=== PATIENT | female | born 1990 | race Caucasian/White ===

== ENCOUNTER 2017-11-02 13:32 | Emergency (ER) | payer BC ==
[2017-11-02] MEDS ORDERED: Ketorolac 30 MG/ML SDV IVPUSH ONE (14:05)
[2017-11-02] MEDS ORDERED: Ondansetron 4 MG/2 ML SDV IVPUSH ONE (14:05)
[2017-11-02] MEDS ORDERED: Sodium Chloride 0.9% 1,000 ML IV ONE (14:05)
--- NOTE | 2017-11-02 14:16 | EDM.PDOC ---
ED HPI GENERAL MEDICAL PROBLEM - General Chief Complaint: Abdominal Pain Stated Complaint: ABDOMINAL PAIN Time Seen by Provider: 11/02/17 13:52 Source of Information: Reports: Patient History Limitations: Reports: No Limitations - History of Present Illness INITIAL COMMENTS - FREE TEXT/NARRATIVE: HISTORY AND PHYSICAL: History of present illness: Patient is a 27-year-old female who presents to the emergency room with abdominal pain 2 weeks. She states when the pain started initially, it was located in her epigastrium. She was seen at the walk-in clinic and [place], which she was diagnosed with a stomach ulcer and started on antacids. At that time a H. pylori test was done, which she reports was negative. Since that time her pain has progressively moved to her low abdomen, which she describes as a "pressure". The pain is worse when she is sitting on the toilet, states "it feels like she needed to have a bowel movement". She did have a bowel movement yesterday which she describes as normal. States the pain is so bad that she is nauseated. Was recently placed on Tamiflu (prophylactic) due to her significant other having influenza. Patient has a history of endometriosis. Currently has the Mirena IUD, last having a Depo-Provera shot in February. She denies any vaginal bleeding or discharge. Unsure of last menstrual period as they have been irregular. Denies any fever, chills, shortness of breath, chest pain. Review of systems: As per history of present illness and below otherwise all systems reviewed and negative. Past medical history: As per history of present illness and as reviewed below otherwise noncontributory. Surgical history: As per history of present illness and as reviewed below otherwise noncontributory. Social history: No reported history of drug or alcohol abuse. Family history: As per history of present illness and as reviewed below otherwise noncontributory. Physical exam: General: Well-developed and well-nourished 27-year-old female. Alert and oriented. Nontoxic appearing and in no acute distress. HEENT: Atraumatic, normocephalic, pupils reactive, negative for conjunctival pallor or scleral icterus, mucous membranes moist, throat clear, neck supple, nontender, trachea midline. Lungs: Clear to auscultation, breath sounds equal bilaterally, chest nontender. Heart: S1S2, regular rate and rhythm Abdomen: Soft, nondistended, right lower quadrant and left lower quadrant tenderness with palpation. Negative for masses or hepatosplenomegaly. Negative for costovertebral tenderness. Pelvis: Stable nontender. Genitourinary: Deferred. Rectal: Deferred. Extremities: Atraumatic, moves all extremities per self without difficulty or deficits. She is negative for cords or calf pain. Neurovascular unremarkable. Neuro: Awake, alert, oriented. Cranial nerves II through XII unremarkable. Cerebellum unremarkable. Motor and sensory unremarkable throughout. Exam nonfocal. CT shows a small amount of free fluid in the pelvis which likely represent a ruptured ovarian cyst. Otherwise is benign. She does have a slightly elevated white count which I feel is reactive due to her pain. She does have a history of endometriosis, which could contribute to her low pelvic pain. Discussed the results with the patient. We'll give her some tramadol for pain management, as she is unable to take ibuprofen as due to her new diagnosis of stomach ulcers. She will follow-up with her RX SPECIALIST or primary care provider next week if she continues to have pain. She denies any questions at this time. Diagnostics: CBC, CMP, UA, urine , CT abdomen and pelvis Therapeutics: IV fluid, Zofran, Toradol Impression: #1 Pelvic Pain #2 History of endometriosis Plan: 1. Please continue to take your prescribed medications. 2. May take Tylenol for pain management. Tramadol has been prescribed for pain as well. This medication may cause drowsiness and do not take it while driving or needing to be functioning outside of the house. Zofran as needed for nausea. Apply Gentle heat to the low abdomen may be beneficial. 3. If you continued to have pain please follow-up with her RX SPECIALIST or primary care provider. Return to the ED as needed and as discussed. Definitive disposition and diagnosis as appropriate pending reevaluation and review of above. Duration: Week(s): Location: Reports: Abdomen lower abdominal pain Pain Score (Numeric/FACES): 3 - Related Data Allergies Allergy/AdvReac Type Severity Reaction Status Date / Time No Known Allergies Allergy Verified 04/01/16 15:29 Home Meds: Home Meds medroxyPROGESTERone Acetate [Depo-Provera] 1 dose INJECT ASDIRECTED 04/01/16 [ History] Levonorgestrel [Mirena] 1 each IY ASDIRECTED 11/02/17 [History] Oseltamivir Phosphate [Tamiflu] 45 mg PO DAILY 11/02/17 [History] Ranitidine HCl [Acid Control] 150 mg PO DAILY 11/02/17 [History] Sucralfate 1 gm PO QID 11/02/17 [History] Past Medical History Respiratory History: Reports: Asthma Gastrointestinal History: Reports: None RX SPECIALIST History: Reports: Endometrial Ablation, Endometriosis - Past Surgical History HEENT Surgical History: Reports: Tonsillectomy GI Surgical History: Reports: Cholecystectomy Musculoskeletal Surgical History: Reports: Other (See Below) Social & Family History - Family History Family Medical History: Noncontributory - Tobacco Use Smoking Status *Q: Never Smoker Second Hand Smoke Exposure: No - Alcohol Use Days Per Week of Alcohol Use: 3 Number of Drinks Per Day: 2 Total Drinks Per Week: 6 - Recreational Drug Use Recreational Drug Use: No ED ROS GENERAL - Review of Systems Review Of Systems: ROS reveals no pertinent complaints other than HPI. ED EXAM, GI/ABD - Physical Exam Exam: See Below (See dictation) Course - Vital Signs Last Recorded V/S: Last Vital Signs Temp 98.7 F 11/02/17 13:47 Pulse 105 H 11/02/17 13:47 Resp 16 11/02/17 13:47 BP 148/95 H 11/02/17 13:47 Pulse Ox 98 11/02/17 13:47 - Orders/Labs/Meds Orders: Active Orders 24 hr Category Date Time Status Abdomen Pelvis w Cont [CT] Stat Exams 11/02/17 14:05 Taken Labs: Laboratory Tests 11/02/17 11/02/17 11/02/17 Range/Units 14:00 14:00 14:31 WBC 13.13 H (4.0-11.0) K/uL RBC 5.02 (4.30-5.90) M/uL Hgb 15.4 (12.0-16.0) g/dL Hct 45.7 (36.0-46.0) % MCV 91.0 (80.0-98.0) fL MCH 30.7 (27.0-32.0) pg MCHC 33.7 (31.0-37.0) g/dL RDW Std Deviation 43.9 (28.0-62.0) fl RDW Coeff of Dane 13 (11.0-15.0) % Plt Count 415 H (150-400) K/uL MPV 9.90 (7.40-12.00) fL Neut % (Auto) 65.6 (48.0-80.0) % Lymph % (Auto) 21.2 (16.0-40.0) % Weber % (Auto) 5.0 (0.0-15.0) % Eos % (Auto) 7.5 H (0.0-7.0) % Baso % (Auto) 0.7 (0.0-1.5) % Neut # (Auto) 8.6 H (1.4-5.7) K/uL Lymph # (Auto) 2.8 H (0.6-2.4) K/uL Weber # (Auto) 0.7 (0.0-0.8) K/uL Eos # (Auto) 1.0 H (0.0-0.7) K/uL Baso # (Auto) 0.1 (0.0-0.1) K/uL Nucleated RBC % 0.0 /100WBC Nucleated RBCs # 0 K/uL Sodium (136-146) mmol/L Potassium (3.5-5.1) mmol/L Chloride (98-110) mmol/L Carbon Dioxide (21-31) mmol/L BUN (6.0-23.0) mg/dL Creatinine (0.6-1.5) mg/dL Est Cr Clr Drug Dosing mL/min Estimated GFR (MDRD) ml/min Glucose (60-110) mg/dL Calcium (8.8-10.8) mg/dL Total Bilirubin (0.1-1.5) mg/dL AST (5-40) IU/L ALT (8-54) IU/L Alkaline Phosphatase (40-150) Total Protein (6.0-8.0) g/dL Albumin (3.5-5.0) g/dL Globulin (2.0-3.5) g/dL Albumin/Globulin Ratio (1.3-2.8) Urine Color YELLOW Urine Appearance CLEAR Urine pH 6.0 (5.0-8.0) Ur Specific [place] 1.025 (1.001-1.035) Urine Protein NEGATIVE (NEGATIVE) mg/dL Urine Glucose (UA) NEGATIVE (NEGATIVE) mg/dL Urine Ketones NEGATIVE (NEGATIVE) mg/dL Urine Occult Blood SMALL H (NEGATIVE) Urine Nitrite NEGATIVE (NEGATIVE) Urine Bilirubin NEGATIVE (NEGATIVE) Urine Urobilinogen 0.2 (<2.0) EU/dL Ur Leukocyte Esterase NEGATIVE (NEGATIVE) Urine RBC 1-2 (0-2/HPF) Urine WBC 0-1 (0-5/HPF) Ur Epithelial Cells FEW (NONE-FEW) Urine Bacteria FEW (NEGATIVE) Urine HCG, Qual NEGATIVE (NEGATIVE) H. pylori IgG Antibody (NEG) 11/02/17 11/02/17 Range/Units 14:31 14:31 WBC (4.0-11.0) K/uL RBC (4.30-5.90) M/uL Hgb (12.0-16.0) g/dL Hct (36.0-46.0) % MCV (80.0-98.0) fL MCH (27.0-32.0) pg MCHC (31.0-37.0) g/dL RDW Std Deviation (28.0-62.0) fl RDW Coeff of Dane (11.0-15.0) % Plt Count (150-400) K/uL MPV (7.40-12.00) fL Neut % (Auto) (48.0-80.0) % Lymph % (Auto) (16.0-40.0) % Weber % (Auto) (0.0-15.0) % Eos % (Auto) (0.0-7.0) % Baso % (Auto) (0.0-1.5) % Neut # (Auto) (1.4-5.7) K/uL Lymph # (Auto) (0.6-2.4) K/uL Weber # (Auto) (0.0-0.8) K/uL Eos # (Auto) (0.0-0.7) K/uL Baso # (Auto) (0.0-0.1) K/uL Nucleated RBC % /100WBC Nucleated RBCs # K/uL Sodium 140 (136-146) mmol/L Potassium 3.8 (3.5-5.1) mmol/L Chloride 108 (98-110) mmol/L Carbon Dioxide 23 (21-31) mmol/L BUN 9 (6.0-23.0) mg/dL Creatinine 0.7 (0.6-1.5) mg/dL Est Cr Clr Drug Dosing 86.71 mL/min Estimated GFR (MDRD) > 60.0 ml/min Glucose 85 (60-110) mg/dL Calcium 9.8 (8.8-10.8) mg/dL Total Bilirubin 1.7 H (0.1-1.5) mg/dL AST 24 (5-40) IU/L ALT 39 (8-54) IU/L Alkaline Phosphatase 71 (40-150) Total Protein 7.5 (6.0-8.0) g/dL Albumin 4.4 (3.5-5.0) g/dL Globulin 3.1 (2.0-3.5) g/dL Albumin/Globulin Ratio 1.4 (1.3-2.8) Urine Color Urine Appearance Urine pH (5.0-8.0) Ur Specific [place] (1.001-1.035) Urine Protein (NEGATIVE) mg/dL Urine Glucose (UA) (NEGATIVE) mg/dL Urine Ketones (NEGATIVE) mg/dL Urine Occult Blood (NEGATIVE) Urine Nitrite (NEGATIVE) Urine Bilirubin (NEGATIVE) Urine Urobilinogen (<2.0) EU/dL Ur Leukocyte Esterase (NEGATIVE) Urine RBC (0-2/HPF) Urine WBC (0-5/HPF) Ur Epithelial Cells (NONE-FEW) Urine Bacteria (NEGATIVE) Urine HCG, Qual (NEGATIVE) H. pylori IgG Antibody NEGATIVE (NEG) Meds: Medications Discontinued Medications Generic Name Dose Route Start Last Admin Trade Name Freq PRN Reason Stop Dose Admin Sodium Chloride 1,000 mls @ 999 mls/hr 11/02/17 14:05 11/02/17 14:41 Normal Saline IV 11/02/17 15:05 999 mls/hr STAT ONE Administration Iopamidol 100 ml 11/02/17 15:38 11/02/17 15:39 Isovue-370 (76%) IVPUSH 11/02/17 15:39 100 ml ONETIME STA Administration Ketorolac Tromethamine 30 mg 11/02/17 14:05 11/02/17 14:46 Toradol IVPUSH 11/02/17 14:06 30 mg ONETIME ONE Administration Morphine Sulfate 2 mg 11/02/17 15:31 Morphine IVPUSH 11/02/17 15:32 ONETIME ONE Ondansetron HCl 4 mg 11/02/17 14:05 11/02/17 14:45 Zofran IVPUSH 11/02/17 14:06 4 mg ONETIME ONE Administration Departure - Departure Time of Disposition: 16:07 Disposition: Home, Self-Care 01 Clinical Impression: Pelvic pain, History of endometriosis - Discharge Information Referrals: PCP,None [Primary Care Provider] - Forms: ED Department Discharge Additional Instructions: My general discharge The following information is given to patients seen in the emergency department who are being discharged to home. This information is to outline your options for follow-up care. We provide all patients seen in our emergency department with a follow-up referral. The need for follow-up, as well as the timing and circumstances, are variable depending upon the specifics of your emergency department visit. If you don't have a primary care physician on staff, we will provide you with a referral. We always advise you to contact your personal physician following an emergency department visit to inform them of the circumstance of the visit and for follow-up with them and/or the need for any referrals to a consulting specialist. The emergency department will also refer you to a specialist when appropriate. This referral assures that you have the opportunity for follow-up care with a specialist. All of these measure are taken in an effort to provide you with optimal care, which includes your follow-up. Under all circumstances we always encourage you to contact your private physician who remains a resource for coordinating your care. When calling for follow-up care, please make the office aware that this follow-up is from your recent emergency room visit. If for any reason you are refused follow-up, please contact the [facility] Emergency Department at and asked to speak to the emergency department charge nurse. [facility] [address] [place] [id number] 1. Please continue to take your prescribed home medications. 2. May take Tylenol for pain management. Tramadol has been prescribed for pain as well. This medication may cause drowsiness and do not take it while driving or needing to be functioning outside of the house. Zofran as needed for nausea. Apply Gentle heat to the low abdomen may be beneficial. 3. If you continued to have pain please follow-up with her RX SPECIALIST or primary care provider. Return to the ED as needed and as discussed. - My Orders Last 24 Hours: My Active Orders 11/02/17 14:05 Abdomen Pelvis w Cont [CT] Stat - Assessment/Plan Last 24 Hours: My Active Orders 11/02/17 14:05 Abdomen Pelvis w Cont [CT] Stat
[2017-11-02 15:10] LABS: CHLORIDE,CL 108 mmol/L (98-110); SODIUM,NA 140 mmol/L (136-146)
[2017-11-02] MEDS ORDERED: Morphine 2 MG/ML Syringe IVPUSH ONE (15:31)
[2017-11-02] MEDS ORDERED: Iopamidol 755 Mg/ML 100 ML Bottle IVPUSH STA (15:38)
[2017-11-02] MEDS ORDERED: Morphine 2 MG/ML Syringe IM ONE (16:37)
[2017-11-02 16:52] VITALS: BP 146/98
--- NOTE | 2017-11-04 14:25 | CT ---
EXAM DATE: 11/02/17 PATIENT'S AGE: 27 Patient: DEE DEE FARNSWORTH Facility: [place], [place] Site . Site : 1990 Study: CT Abdomen/Pelvis [id number] 3:28:13 PM Ordering Physician: Doctor Gonzalez Final Report: INDICATION: LOWER ABD PAIN HISTORY: Lower abdominal pain. COMPARISON: None. TECHNIQUE: CT of the abdomen and pelvis. 100 cc of Isovue-370 IV. Coronal/sagittal reconstruction images. FINDINGS: Lung bases: There is no pleural or pericardial effusion. The heart size is normal. There is dependent atelectasis. There is no acute airspace disease. There is no basilar pneumothorax. Abdomen/pelvis: There is no solid hepatic mass. There is no dilation of intrahepatic biliary radicals. There is no perihepatic ascites. There is no adrenal mass. There is no hydronephrosis. There is no perinephric fluid collection. Cholecystectomy. The nephrograms are symmetric. The spleen size is normal. There is no pancreatic mass or pancreatic duct dilation. No glandular atrophy. IUD in place. Small amount of free fluid in the pelvis. No adnexal mass. No drainable fluid collection. There is no evidence for a small bowel or colonic obstruction. There is no mucosal hyper enhancement. There is no perienteric edema. The terminal ileum is normal. The appendix is normal in caliber. It is seen best on series 203, image 47, and on series 201, image 88. No abdominal aortic aneurysm. The celiac axis, SMA, and NGA are patent. There is no adenopathy by size criteria in the pelvis, retroperitoneum, gastrohepatic ligament, small bowel mesentery. The bone windows demonstrate no lytic or blastic bone lesions. The alignment is preserved. On sagittal reconstruction images, vertebral body heights are maintained. IMPRESSION: 1. Small amount of free fluid in the pelvis. This may represent a recently ruptured ovarian cyst. 2. No loculated fluid collection to indicate an abscess. No adnexal mass. 3. The appendix is normal in caliber. There are no adjacent inflammatory changes. 4. Gallbladder appears surgically absent. Normal caliber biliary tree. Dictated by Ramin Loomis MD @ 11/02/2017 3:47:50 PM Dictated by: Ramin Loomis MD @ 11/02/2017 15:48:23 (Electronic Signature) Report Signed by Proxy. [facility]
== END 2017-11-02 16:51 | disposition home or self-care (01) ==
LOC: MW.ED 13:32
DX: R10.2 Pelvic and perineal pain (principal); R10.31 Right lower quadrant pain; R10.32 Left lower quadrant pain; Z87.42 Personal history of other diseases of the female genital tract; Z79.899 Other long term (current) drug therapy
CPT/HCPCS: 36415; 74177; 80053; 81001; 81025; 85025; 86677; 96361; 96372; 96374; 96375; 99284; J1885; J2270; J2405; J7040; Q9967

== ENCOUNTER 2019-09-26 18:35 | Emergency (ER) | payer BC ==
--- NOTE | 2019-09-26 19:35 | EDM.PDOC ---
ED HPI GENERAL MEDICAL PROBLEM - General Chief Complaint: ENT Problem Stated Complaint: FLU SYMPTOMS Time Seen by Provider: 09/26/19 19:16 Source of Information: Reports: Patient History Limitations: Reports: No Limitations - History of Present Illness INITIAL COMMENTS - FREE TEXT/NARRATIVE: Presents reporting a 24-hour history of ear fullness and pain particularly on the right, feeling rundown. Denies shortness of breath, chest pain, cough, sore throat. She does not smoke. Did not have a flu shot. Otherwise healthy except for hypertension. She states she has not taken her blood pressure medication for today yet. Bilateral Ear Pain Score (Numeric/FACES): 4 - Related Data Allergies Allergy/AdvReac Type Severity Reaction Status Date / Time No Known Allergies Allergy Verified 09/26/19 19:15 Home Meds: Home Meds medroxyPROGESTERone Acetate [Depo-Provera] 1 dose INJECT ASDIRECTED 04/01/16 [ History] Sucralfate 1 gm PO QID 11/02/17 [History] levonorgestreL [Mirena] 1 each IY ASDIRECTED 11/02/17 [History] raNITIdine HCl [Acid Control] 150 mg PO DAILY 11/02/17 [History] Diclofenac Sodium [Voltaren] 75 mg PO BIDMEALS #20 tab.ec 09/26/19 [Rx] Metoprolol Succinate [Toprol XL] 25 mg PO DAILY 09/26/19 [History] Montelukast [Singulair] 10 mg PO DAILY 09/26/19 [History] amLODIPine [Norvasc] 2.5 mg PO DAILY 09/26/19 [History] Past Medical History Cardiovascular History: Reports: Hypertension Respiratory History: Reports: Asthma Gastrointestinal History: Reports: None RAYON WINDER History: Reports: Endometrial Ablation, Endometriosis - Infectious Disease History Infectious Disease History: Reports: Chicken Pox - Past Surgical History HEENT Surgical History: Reports: Tonsillectomy GI Surgical History: Reports: Cholecystectomy Musculoskeletal Surgical History: Reports: Other (See Below) Social & Family History - Family History Family Medical History: Noncontributory - Tobacco Use Smoking Status *Q: Never Smoker Second Hand Smoke Exposure: No - Caffeine Use Caffeine Use: Reports: Coffee - Recreational Drug Use Recreational Drug Use: No ED ROS ENT - Review of Systems Review Of Systems: Comprehensive ROS is negative, except as noted in HPI. ED EXAM, ENT - Physical Exam Exam: See Below Exam Limited By: No Limitations General Appearance: Alert, No Apparent Distress Ears: Normal External Exam, Normal TMs Nose: Normal Inspection Mouth/Throat: Normal Inspection Head: Atraumatic Neck: Normal Inspection Respiratory/Chest: No Respiratory Distress, Lungs Clear, Normal Breath Sounds Cardiovascular: Normal Peripheral Pulses, Regular Rate, Rhythm, No Murmur Neurological: Alert, Oriented Psychiatric: Normal Affect, Normal Mood Skin: Warm, Dry, Intact, Normal Color, No Rash Lymphatic: No Adenopathy Course - Vital Signs Last Recorded V/S: Last Vital Signs Temp 36.4 C 09/26/19 19:12 Pulse 97 09/26/19 19:12 Resp 18 09/26/19 19:12 BP 155/118 H 09/26/19 19:12 Pulse Ox 99 09/26/19 19:12 - Orders/Labs/Meds Meds: Medications Discontinued Medications Generic Name Dose Route Start Last Admin Trade Name Freq PRN Reason Stop Dose Admin Ketorolac Tromethamine 60 mg 09/26/19 20:05 Toradol IM 09/26/19 20:06 ONETIME ONE Departure - Departure Time of Disposition: 20:08 Disposition: Home, Self-Care 01 Condition: Good Clinical Impression: Eustachian tube dysfunction Qualifiers: Laterality: right Qualified Code(s): H69.81 - Other specified disorders of Eustachian tube, right ear Serous otitis media Qualifiers: Chronicity: acute - Discharge Information Prescriptions: Diclofenac Sodium [Voltaren] 75 mg PO BIDMEALS #20 tab.ec Referrals: PCP,None [Primary Care Provider] - [facility] [Outside] [facility] [Outside] Forms: ED Department Discharge Additional Instructions: The following information is given to patients seen in the emergency department who are being discharged to home. This information is to outline your options for follow-up care. We provide all patients seen in our emergency department with a follow-up referral. The need for follow-up, as well as the timing and circumstances, are variable depending upon the specifics of your emergency department visit. If you don't have a primary care physician on staff, we will provide you with a referral. We always advise you to contact your personal physician following an emergency department visit to inform them of the circumstance of the visit and for follow-up with them and/or the need for any referrals to a consulting specialist. The emergency department will also refer you to a specialist when appropriate. This referral assures that you have the opportunity for follow-up care with a specialist. All of these measure are taken in an effort to provide you with optimal care, which includes your follow-up. Under all circumstances we always encourage you to contact your private physician who remains a resource for coordinating your care. When calling for follow-up care, please make the office aware that this follow-up is from your recent emergency room visit. If for any reason you are refused follow-up, please contact the [facility] Emergency Department at and asked to speak to the emergency department charge nurse. 1. Diclofenac twice daily for a couple of days then as needed 2. Drink plenty of fluids and rest 3. Follow up in primary care Sepsis Event Note - Evaluation Sepsis Screening Result: No Definite Risk - Focused Exam Vital Signs: Vital Signs Temp Pulse Resp BP Pulse Ox 09/26/19 19:12 36.4 C 97 18 155/118 H 99 Date Exam was Performed: 09/26/19 Time Exam was Performed: 20:08
[2019-09-26] MEDS ORDERED: Ketorolac 60 MG/2 ML SDV IM ONE (20:05)
[2019-09-26 20:44] VITALS: BP 148/96; PULSE 93
== END 2019-09-26 20:44 | disposition home or self-care (01) ==
LOC: MW.ED 18:35
DX: H69.81 Other specified disorders of Eustachian tube, right ear (principal); H65.91 Unspecified nonsuppurative otitis media, right ear; I10 Essential (primary) hypertension; J45.909 Unspecified asthma, uncomplicated; Z79.899 Other long term (current) drug therapy
CPT/HCPCS: 87804; 96372; 99283; J1885

== ENCOUNTER 2020-05-04 20:02 | Emergency (ER) | payer BC ==
--- NOTE | 2020-05-04 20:24 | EDM.PDOC ---
ED HPI GENERAL MEDICAL PROBLEM - General Stated Complaint: KNEE PROBLEM Time Seen by Provider: 05/04/20 20:16 Source of Information: Reports: Patient History Limitations: Reports: No Limitations - History of Present Illness INITIAL COMMENTS - FREE TEXT/NARRATIVE: HISTORY AND PHYSICAL: History of present illness: Patient is a 29-year-old female who presents to the ED today with concern of left knee pain. Patient states that she had some knee pain following a volleyball game 2 weeks ago and since then has had knee pain off and on. Patient states tonight she began feeling a "pop" sensation of her left knee and states that when it pops this causes her pain and anytime she bends her knee the sensation happens. Patient denies any direct trauma or injury to the knee today causing this to happen. Patient denies any other symptoms or concerns. Patient denies fever, chills, chest pain, shortness of breath, or cough. Denies headache, neck stiff ness, change in vision, syncope, or near syncope. Denies nausea, vomiting, abdominal pain, diarrhea, constipation, or dysuria. Has not noted any blood in urine or stool. Patient has been eating and drinking appropriately. Review of systems: As per history of present illness and below otherwise all systems reviewed and negative. Past medical history: As per history of present illness and as reviewed below otherwise noncontributory. Surgical history: As per history of present illness and as reviewed below otherwise noncontributory. Social history: See social history for further information Family history: As per history of present illness and as reviewed below otherwise noncontributory. Physical exam: General: Patient is alert, oriented, and in no acute distress. Patient sitting comfortably on exam table. HEENT: Atraumatic, normocephalic, pupils equal and reactive bilaterally, negative for conjunctival pallor or scleral icterus, mucous membranes moist, TMs normal bilaterally, throat clear, neck supple, nontender, trachea midline. No drooling or trismus noted. No meningeal signs. No hot potato voice noted. Lungs: Clear to auscultation, breath sounds equal bilaterally, chest nontender. Heart: S1S2, regular rate and rhythm without overt murmur Abdomen: Soft, nondistended, nontender. Negative for masses or hepatosplenomegaly. Negative for costovertebral tenderness. Pelvis: Stable nontender. Genitourinary: Deferred. Rectal: Deferred. Skin: Intact, warm, dry. No lesions or rashes noted. Extremities: No obvious deformity of the left lower extremity. The patella does dislocate and relocate with manipulation several times on exam and this does cause pain to the patient. Patient does have limited range of motion of the left knee due to the dislocation of it. No edema or erythema noted of the left knee. Dorsalis pedis and posterior tibial pulses are grossly intact of the left lower extremity with capillary refill less than 2 seconds. Otherwise, atraumatic, negative for cords or calf pain. Neurovascular unremarkable. Neuro: Awake, alert, oriented. Cranial nerves II through XII unremarkable. Cerebellum unremarkable. Motor and sensory unremarkable throughout. Exam nonfocal. Notes: Discussed the importance for follow-up with an orthopedic provider. Voices understanding and is agreeable to plan of care. Denies any further questions or concerns at this time. Diagnostics: None Therapeutics: Knee immobilizer and crutches-->to be used until orthopedic evaluation for patellar subluxation to alleviate pain Prescription: Diclofenac Impression: Patella subluxation Plan: 1. Rest, ice, elevate the affected extremity. You can apply ice 15 minutes on, 15 minutes off. Use knee immobilizer as discussed. 2. Tylenol as directed for pain management or discomfort. Take medication as prescribed. Do not use this medication along with other NSAIDs such as ibuprofen, naproxen, or Advil. 3. Follow up with an orthopedic provider as discussed. Return to the ED as needed and as discussed. Definitive disposition and diagnosis as appropriate pending reevaluation and review of above. Left Knee Pain Score (Numeric/FACES): 7 - Related Data Allergies Allergy/AdvReac Type Severity Reaction Status Date / Time No Known Allergies Allergy Verified 05/04/20 20:27 Home Meds: Home Meds Metoprolol Succinate [Toprol XL] 25 mg PO DAILY 09/26/19 [History] Montelukast [Singulair] 10 mg PO DAILY 09/26/19 [History] amLODIPine [Norvasc] 5 mg PO DAILY 09/26/19 [History] Diclofenac Sodium [Voltaren] 75 mg PO BIDMEALS PRN #15 tab.cr 05/04/20 [Rx] PARoxetine HCL [Paroxetine HCl] 10 mg PO DAILY 05/04/20 [History] Past Medical History Cardiovascular History: Reports: Hypertension Respiratory History: Reports: Asthma Gastrointestinal History: Reports: None 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 ED EXAM, GENERAL - Physical Exam Exam: See Below (See dictation) Course - Vital Signs Last Recorded V/S: Last Vital Signs Temp 97.9 F 05/04/20 20:24 Pulse 103 H 05/04/20 20:24 Resp 18 05/04/20 20:24 BP 131/82 05/04/20 20:24 Pulse Ox 98 05/04/20 20:24 - Orders/Labs/Meds Orders: Active Orders 24 hr Category Date Time Status DME for Discharge [COMM] Stat Oth 05/04/20 20:34 Ordered Departure - Departure Time of Disposition: 20:37 Disposition: Home, Self-Care 01 Clinical Impression: Patellar subluxation Qualifiers: Encounter type: initial encounter Laterality: left Qualified Code(s): S83.002A - Unspecified subluxation of left patella, initial encounter - Discharge Information Referrals: Lynn Aguilar, RECORDS ADMINISTRATOR [Primary Care Provider] - Additional Instructions: The following information is given to patients seen in the emergency department who are being discharged to home. This information is to outline your options for follow-up care. We provide all patients seen in our emergency department with a follow-up referral. The need for follow-up, as well as the timing and circumstances, are variable depending upon the specifics of your emergency department visit. If you don't have a primary care physician on staff, we will provide you with a referral. We always advise you to contact your personal physician following an emergency department visit to inform them of the circumstance of the visit and for follow-up with them and/or the need for any referrals to a consulting specialist. The emergency department will also refer you to a specialist when appropriate. This referral assures that you have the opportunity for follow-up care with a specialist. All of these measure are taken in an effort to provide you with optimal care, which includes your follow-up. Under all circumstances we always encourage you to contact your private physician who remains a resource for coordinating your care. When calling for follow-up care, please make the office aware that this follow-up is from your recent emergency room visit. If for any reason you are refused follow-up, please contact the [facility] at and asked to speak to the emergency department charge nurse. [facility] [address] [place] [id number] [address] [facility] Professional [facility] [address] [place] [address], [address] [place] [address] Dr Carter, Orthopedist [facility] [address] [place] [address] Dr Salazar - Dr Pierce - Dr Moss [facility] [address] [place] [address] [facility] [address] [place] [address] 1. Rest, ice, elevate the affected extremity. You can apply ice 15 minutes on, 15 minutes off. Use knee immobilizer as discussed. 2. Tylenol as directed for pain management or discomfort. Take medication as prescribed. Do not use this medication along with other NSAIDs such as ibuprofen, naproxen, or Advil. 3. Follow up with an orthopedic provider as discussed. Return to the ED as needed and as discussed. Sepsis Event Note (ED) - Focused Exam Vital Signs: Vital Signs Temp Pulse Resp BP Pulse Ox 05/04/20 20:24 97.9 F 103 H 18 131/82 98 - My Orders Last 24 Hours: My Active Orders 05/04/20 20:34 DME for Discharge [COMM] Stat - Assessment/Plan Last 24 Hours: My Active Orders 05/04/20 20:34 DME for Discharge [COMM] Stat
[2020-05-04 20:27] VITALS: BP 131/82
[2020-05-05 01:19] VITALS: PULSE 84
== END 2020-05-04 21:16 | disposition home or self-care (01) ==
LOC: MW.ED 20:02
DX: S83.002A Unspecified subluxation of left patella, initial encounter (principal); J45.909 Unspecified asthma, uncomplicated; I10 Essential (primary) hypertension; Z79.899 Other long term (current) drug therapy; X58.XXXA Exposure to other specified factors, initial encounter
CPT/HCPCS: 99283

== ENCOUNTER 2020-10-10 17:52 | Emergency (ER) | payer BC ==
[2020-10-10] MEDS ORDERED: Sodium Chloride 0.9% 10 ML Syringe FLUSH PRN (18:30)
[2020-10-10] MEDS ORDERED: Sodium Chloride 0.9% 2.5 ML Syringe FLUSH PRN (18:30)
[2020-10-10] MEDS ORDERED: Ondansetron 4 MG/2 ML SDV IVPUSH ONE (18:30)
[2020-10-10] MEDS ORDERED: Sodium Chloride 0.9% 1,000 ML IV ONE (18:30)
[2020-10-10] MEDS ORDERED: Morphine 4 MG/ML Syringe IVPUSH ONE (18:31)
[2020-10-10 19:58] LABS: BLOOD UREA NITROGEN,BUN 12 mg/dL (7.0-18.0); CARBON DIOXIDE,CO2 26.5 mmol/L (21.0-32.0); CHLORIDE,CL 101 mmol/L (98-107); GLUCOSE RANDOM 84 mg/dL (74-106); LIPASE 152 U/L (73-393); POTASSIUM,K 4.2 mmol/L (3.5-5.1); SODIUM,NA 141 mmol/L (136-145)
[2020-10-10] MEDS ORDERED: Iopamidol 755 MG/ML 500 ML Multipack Bottle IVPUSH STA (20:34)
[2020-10-10] MEDS ORDERED: Acetaminophen 500 MG Tab PO ONE (20:48)
--- NOTE | 2020-10-10 21:01 | CT ---
Indication: Right lower quadrant pain Technique: Postcontrast CT abdomen and pelvis. 100 cc Isovue 370 intravenous contrast. Please note that all CT scans at this facility use dose modulation, iterative reconstruction, and/or weight-based dosing when appropriate to reduce radiation dose to as low as reasonably achievable. Comparison: November 02, 2017 Findings: Uterus is surgically absent. Bladder normal. Normal ovaries. Stable subcentimeter mesenteric lymph nodes. Normal adrenal glands, kidneys and ureters. No bowel obstruction or free air. No free fluid. The liver is normal. Status post cholecystectomy. Normal spleen and pancreas. Mild areas of atelectasis are noted in both lung bases. No pleural effusion. Normal appendix. Bilateral acetabular over coverage. No fracture. Impression: Normal appendix. No acute intra-abdominal or intrapelvic pathology. Status post cholecystectomy and hysterectomy. Normal ovaries. Please note that all CT scans at this facility use dose modulation, iterative reconstruction, and/or weight-based dosing when appropriate to reduce radiation dose to as low as reasonably achievable. Dictated by Jean Marie Wang MD @ Oct 10 2020 8:51PM Signed by Dr. Jean Marie Wang @ Oct 10 2020 8:59PM
--- NOTE | 2020-10-10 21:29 | EDM.PDOC ---
ED HPI GENERAL MEDICAL PROBLEM - General Chief Complaint: Abdominal Pain Stated Complaint: ABDOMINAL PAIN Time Seen by Provider: 10/10/20 18:00 Source of Information: Reports: Patient History Limitations: Reports: No Limitations - History of Present Illness INITIAL COMMENTS - FREE TEXT/NARRATIVE: HISTORY AND PHYSICAL: History of present illness: Patient is a 30-year-old female who presents to the ED today with concern of right-sided abdominal pain and an episode of bloody diarrhea that occurred 2 to 3 hours prior to arrival to the ED. Patient states that her stomach felt "upset "and she went to the bathroom and felt like she was going to have a bowel movement. Patient states she had an episode of diarrhea and states that it was watery in consistency. Patient states when she looked in the toilet bowl, she noticed that there was blood in the toilet bowl and on the toilet paper. Patient states she is continuing to have right-sided abdominal pain but has not had any more episodes of bleeding. Patient denies vaginal bleeding and states that she believes it is from her rectum. Patient states that she has a history of hysterectomy and cholecystectomy. Patient states that she took a dose of aspirin just before coming to the emergency room for her pain. Patient denies fever, chills, chest pain, shortness of breath, or cough. Denies headache, neck stiff ness, change in vision, syncope, or near syncope. Denies nausea, vomiting, constipation, or dysuria. Has not noted any blood in urine. Patient has been eating and drinking appropriately. Review of systems: As per history of present illness and below otherwise all systems reviewed and negative. Past medical history: As per history of present illness and as reviewed below otherwise noncontributory. Surgical history: As per history of present illness and as reviewed below otherwise noncontributory. Social history: See social history for further information Family history: As per history of present illness and as reviewed below otherwise noncontributory. Physical exam: General: Patient is alert, oriented, and in no acute distress. Patient laying comfortably on exam table. Vitals stable and reviewed by me. HEENT: Atraumatic, normocephalic, pupils equal and reactive bilaterally, negative for conjunctival pallor or scleral icterus, mucous membranes moist, TMs normal bilaterally, throat clear, neck supple, nontender, trachea midline. No drooling or trismus noted. No meningeal signs. No hot potato voice noted. Lungs: Clear to auscultation, breath sounds equal bilaterally, chest nontender. Heart: S1S2, regular rate and rhythm without overt murmur Abdomen: Soft, nondistended, moderate tenderness of the RLQ without guarding, negative pena/rebound tenderness. Negative for masses or hepatosplenomegaly. Negative for costovertebral tenderness. Pelvis: Stable nontender. Genitourinary: Food Service Director at bedside Chrissy K. External genitalia grossly unremarkable with noted clitoral piercing. Vaginal bleeding noted on exam. There is a small amount of dry/white vaginal discharge noted in the vaginal vault. Rectal: Food Service Director at bedside Chrissy k. Rectal tone intact. No julio blood not ed on exam. No masses, hemorrhoids, lesions, or fissures noted. No pain on GRZEGORZ. Hemoccult positive. Skin: Intact, warm, dry. No lesions or rashes noted. Extremities: Atraumatic, negative for cords or calf pain. Neurovascular unremarkable. Neuro: Awake, alert, oriented. Cranial nerves II through XII unremarkable. Cerebellum unremarkable. Motor and sensory unremarkable throughout. Exam nonfocal. Notes: Upon reeval of patient, she remains vitally stable and comfortable on exam. Symptoms that would prompt return to the ED thoroughly discussed with patient. Discussed importance for follow-up with a primary care provider/general surgeon for colonoscopy consideration. Voices understanding and is agreeable to plan of care. Denies any further questions or concerns at this time. Diagnostics: CBC, CMP, UA, urine culture, Hemoccult, lipase, abdominal pelvic CT, repeat H&H, tylenol Therapeutics: Saline, Tylenol, Morphine, Zofran Prescription: None Impression: Abdominal pain, unspecified Hemoccult positive Plan: 1. You can alternate ibuprofen and Tylenol as directed for pain and discomfort. 2. Follow-up with your primary care provider and the general surgeon as discussed. Return to the ED as needed and as discussed. Definitive disposition and diagnosis as appropriate pending reevaluation and review of above. lower abdominal pain Pain Score (Numeric/FACES): 6 - Related Data Allergies Allergy/AdvReac Type Severity Reaction Status Date / Time No Known Allergies Allergy Verified 10/10/20 18:47 Home Meds: Home Meds Metoprolol Succinate [Toprol XL] 25 mg PO DAILY 09/26/19 [History] Montelukast [Singulair] 10 mg PO DAILY 09/26/19 [History] amLODIPine [Norvasc] 2.5 mg PO DAILY 09/26/19 [History] Diclofenac Sodium [Voltaren] 75 mg PO BIDMEALS PRN #15 tab.cr 05/04/20 [Rx] PARoxetine HCL [Paroxetine HCl] 10 mg PO DAILY 05/04/20 [History] Past Medical History Cardiovascular History: Reports: Hypertension Respiratory History: Reports: Asthma Gastrointestinal History: Reports: None 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: Endometrial Ablation, Endometriosis Musculoskeletal History: Reports: None Neurological History: Reports: None Psychiatric History: Reports: None Endocrine/Metabolic History: Reports: None Hematologic History: Reports: None Immunologic History: Reports: None Oncologic (Cancer) History: Reports: None Dermatologic History: Reports: None - Infectious Disease History Infectious Disease History: Reports: Chicken Pox - Past Surgical History Head Surgeries/Procedures: Reports: None HEENT Surgical History: Reports: Tonsillectomy GI Surgical History: Reports: Cholecystectomy Female Surgical History: Reports: Hysterectomy Musculoskeletal Surgical History: Reports: Other (See Below) Other Musculoskeletal Surgeries/Procedures:: left foot surgery Social & Family History - Family History Family Medical History: No Pertinent Family History - Caffeine Use Caffeine Use: Reports: Coffee - Recreational Drug Use Recreational Drug Use: No ED ROS GENERAL - Review of Systems Review Of Systems: Comprehensive ROS is negative, except as noted in HPI. ED EXAM, GENERAL - Physical Exam Exam: See Below (see dictation) Course - Vital Signs Last Recorded V/S: Last Vital Signs Temp 97.6 F 10/10/20 21:35 Pulse 85 10/10/20 21:35 Resp 18 10/10/20 21:35 BP 106/67 10/10/20 21:35 Pulse Ox 97 10/10/20 21:35 - Orders/Labs/Meds Orders: Active Orders 24 hr Category Date Time Status CULTURE URINE [RM] Stat Lab 10/10/20 19:12 Received Saline Lock Insert [OM.PC] Stat Oth 10/10/20 18:30 Ordered Labs: Laboratory Tests 10/10/20 10/10/20 10/10/20 Range/Units 19:09 19:09 19:09 WBC 11.12 H (4.0-11.0) K/uL RBC 4.44 (4.30-5.90) M/uL Hgb 13.8 (12.0-16.0) g/dL Hct 41.4 (36.0-46.0) % MCV 93.2 (80.0-98.0) fL MCH 31.1 (27.0-32.0) pg MCHC 33.3 (31.0-37.0) g/dL RDW Std Deviation 42.4 (28.0-62.0) fl RDW Coeff of Dane 13 (11.0-15.0) % Plt Count 361 (150-400) K/uL MPV 10.40 (7.40-12.00) fL Neut % (Auto) 57.0 (48.0-80.0) % Lymph % (Auto) 34.1 (16.0-40.0) % Arroyo % (Auto) 5.0 (0.0-15.0) % Eos % (Auto) 3.4 (0.0-7.0) % Baso % (Auto) 0.5 (0.0-1.5) % Neut # (Auto) 6.3 H (1.4-5.7) K/uL Lymph # (Auto) 3.8 H (0.6-2.4) K/uL Arroyo # (Auto) 0.6 (0.0-0.8) K/uL Eos # (Auto) 0.4 (0.0-0.7) K/uL Baso # (Auto) 0.1 (0.0-0.1) K/uL Sodium 141 (136-145) mmol/L Potassium 4.2 (3.5-5.1) mmol/L Chloride 101 (98-107) mmol/L Carbon Dioxide 26.5 (21.0-32.0) mmol/L BUN 12 (7.0-18.0) mg/dL Creatinine 0.9 (0.6-1.0) mg/dL Est Cr Clr Drug Dosing 65.65 mL/min Estimated GFR (MDRD) > 60.0 ml/min Glucose 84 (74-106) mg/dL Calcium 10.1 (8.5-10.1) mg/dL Total Bilirubin 0.9 (0.2-1.0) mg/dL AST 26 (15-37) IU/L ALT 49 (14-63) IU/L Alkaline Phosphatase 62 (46-116) U/L Total Protein 8.3 H (6.4-8.2) g/dL Albumin 4.6 (3.4-5.0) g/dL Globulin 3.7 (2.6-4.0) g/dL Albumin/Globulin Ratio 1.2 (0.9-1.6) Lipase 152 (73-393) U/L HCG, Qual NEGATIVE (NEG) Urine Color Urine Appearance Urine pH (5.0-8.0) Ur Specific Herald (1.001-1.035) Urine Protein (NEGATIVE) mg/dL Urine Glucose (UA) (NEGATIVE) mg/dL Urine Ketones (NEGATIVE) mg/dL Urine Occult Blood (NEGATIVE) Urine Nitrite (NEGATIVE) Urine Bilirubin (NEGATIVE) Urine Urobilinogen (<2.0) EU/dL Ur Leukocyte Esterase (NEGATIVE) Urine RBC (0-2/HPF) Urine WBC (0-5/HPF) Ur Epithelial Cells (NONE-FEW) Urine Bacteria (NEGATIVE) 10/10/20 10/10/20 Range/Units 19:12 21:19 WBC (4.0-11.0) K/uL RBC (4.30-5.90) M/uL Hgb 13.5 (12.0-16.0) g/dL Hct 40.6 (36.0-46.0) % MCV (80.0-98.0) fL MCH (27.0-32.0) pg MCHC (31.0-37.0) g/dL RDW Std Deviation (28.0-62.0) fl RDW Coeff of Dane (11.0-15.0) % Plt Count (150-400) K/uL MPV (7.40-12.00) fL Neut % (Auto) (48.0-80.0) % Lymph % (Auto) (16.0-40.0) % Arroyo % (Auto) (0.0-15.0) % Eos % (Auto) (0.0-7.0) % Baso % (Auto) (0.0-1.5) % Neut # (Auto) (1.4-5.7) K/uL Lymph # (Auto) (0.6-2.4) K/uL Arroyo # (Auto) (0.0-0.8) K/uL Eos # (Auto) (0.0-0.7) K/uL Baso # (Auto) (0.0-0.1) K/uL Sodium (136-145) mmol/L Potassium (3.5-5.1) mmol/L Chloride (98-107) mmol/L Carbon Dioxide (21.0-32.0) mmol/L BUN (7.0-18.0) mg/dL Creatinine (0.6-1.0) mg/dL Est Cr Clr Drug Dosing mL/min Estimated GFR (MDRD) ml/min Glucose (74-106) mg/dL Calcium (8.5-10.1) mg/dL Total Bilirubin (0.2-1.0) mg/dL AST (15-37) IU/L ALT (14-63) IU/L Alkaline Phosphatase (46-116) U/L Total Protein (6.4-8.2) g/dL Albumin (3.4-5.0) g/dL Globulin (2.6-4.0) g/dL Albumin/Globulin Ratio (0.9-1.6) Lipase (73-393) U/L HCG, Qual (NEG) Urine Color YELLOW Urine Appearance CLEAR Urine pH 5.5 (5.0-8.0) Ur Specific Herald 1.010 (1.001-1.035) Urine Protein NEGATIVE (NEGATIVE) mg/dL Urine Glucose (UA) NEGATIVE (NEGATIVE) mg/dL Urine Ketones >=80 (NEGATIVE) mg/dL Urine Occult Blood TRACE-INTACT H (NEGATIVE) Urine Nitrite NEGATIVE (NEGATIVE) Urine Bilirubin NEGATIVE (NEGATIVE) Urine Urobilinogen 0.2 (<2.0) EU/dL Ur Leukocyte Esterase TRACE H (NEGATIVE) Urine RBC 0-2 (0-2/HPF) Urine WBC 0-2 (0-5/HPF) Ur Epithelial Cells FEW (NONE-FEW) Urine Bacteria FEW (NEGATIVE) Meds: Medications Discontinued Medications Generic Name Dose Route Start Last Admin Trade Name Freq PRN Reason Stop Dose Admin Acetaminophen 1,000 mg 10/10/20 20:48 10/10/20 20:52 Tylenol Extra Strength PO 10/10/20 20:49 1,000 mg ONETIME ONE Administration Sodium Chloride 1,000 mls @ 999 mls/hr 10/10/20 18:30 10/10/20 19:06 Normal Saline IV 10/10/20 19:30 999 mls/hr BOLUS ONE Administration Iopamidol 100 ml 10/10/20 20:34 10/10/20 20:35 Isovue Multipack-370 (76%) IVPUSH 10/10/20 20:35 100 ml ONETIME STA Administration Morphine Sulfate 4 mg 10/10/20 18:31 10/10/20 19:05 Morphine IVPUSH 10/10/20 18:32 4 mg ONETIME ONE Administration Ondansetron HCl 4 mg 10/10/20 18:30 10/10/20 19:05 Zofran IVPUSH 10/10/20 18:31 4 mg ONETIME ONE Administration Sodium Chloride 10 ml 10/10/20 18:30 10/10/20 19:07 Saline Flush FLUSH 10 ml ASDIRECTED PRN Administration Keep Vein Open Sodium Chloride 2.5 ml 10/10/20 18:30 10/10/20 19:06 Saline Flush FLUSH 2.5 ml ASDIRECTED PRN Administration Keep Vein Open Departure - Departure Time of Disposition: 21:28 Disposition: Home, Self-Care 01 Clinical Impression: Heme + stool Abdominal pain Qualifiers: Abdominal location: right lower quadrant Qualified Code(s): R10.31 - Right lower quadrant pain - Discharge Information Instructions: Abdominal Pain, Adult, [id number] Referrals: Lynn Aguilar, ELECTRONIC DATA PROCESSING AUDITOR [Primary Care Provider] - Forms: ED Department Discharge Additional Instructions: The following information is given to patients seen in the emergency department who are being discharged to home. This information is to outline your options for follow-up care. We provide all patients seen in our emergency department with a follow-up referral. The need for follow-up, as well as the timing and circumstances, are variable depending upon the specifics of your emergency department visit. If you don't have a primary care physician on staff, we will provide you with a referral. We always advise you to contact your personal physician following an emergency department visit to inform them of the circumstance of the visit and for follow-up with them and/or the need for any referrals to a consulting specialist. The emergency department will also refer you to a specialist when appropriate. This referral assures that you have the opportunity for follow-up care with a specialist. All of these measure are taken in an effort to provide you with optimal care, which includes your follow-up. Under all circumstances we always encourage you to contact your private physician who remains a resource for coordinating your care. When calling for follow-up care, please make the office aware that this follow-up is from your recent emergency room visit. If for any reason you are refused follow-up, please contact the [facility] Emergency Department at and asked to speak to the emergency department charge nurse. [facility] [address] [place] [address] [facility] [address] [place] [id number] [facility] - General [facility] Professional Building [address] [place] [address], [address] [place] [address] 1. You can alternate ibuprofen and Tylenol as directed for pain and discomfort. 2. Follow-up with your primary care provider and the general surgeon as discussed. Return to the ED as needed and as discussed. Sepsis Event Note (ED) - Evaluation Sepsis Screening Result: No Definite Risk - Focused Exam Vital Signs: Vital Signs Temp Pulse Resp BP Pulse Ox 10/10/20 21:35 97.6 F 85 18 106/67 97 10/10/20 18:15 98.2 F 71 18 119/63 99 - My Orders Last 24 Hours: My Active Orders 10/10/20 18:30 Saline Lock Insert [OM.PC] Stat 10/10/20 19:12 CULTURE URINE [RM] Stat - Assessment/Plan Last 24 Hours: My Active Orders 10/10/20 18:30 Saline Lock Insert [OM.PC] Stat 10/10/20 19:12 CULTURE URINE [RM] Stat
[2020-10-10 21:38] VITALS: BP 106/67; PULSE 85
== END 2020-10-10 21:37 | disposition home or self-care (01) ==
LOC: MW.ED 17:52
DX: K92.1 Melena (principal); I10 Essential (primary) hypertension; J45.909 Unspecified asthma, uncomplicated; Z79.899 Other long term (current) drug therapy
CPT/HCPCS: 36415; 74177; 80053; 81001; 83690; 84703; 85014; 85018; 85025; 87086; 96374; 96375; 99284; A9270; J2270; J2405; J7030; Q9967; 99285

== ENCOUNTER 2020-11-11 08:01 | Day surgery (SDC) | payer BC ==
[~2020-11-11 08:01] MED LIST: Lactated Ringers 1,000 ML IV SCH; Lidocaine 2% 5 ML SDV ONE; Midazolam 1 MG/ML 2 ML SDV ONE; Propofol 200 MG/20 ML SDV ONE; fentaNYL 100 MCG/2 ML SDV ONE
--- NOTE | 2020-11-11 08:32 | PCM.PREANE ---
Preanesthetic Assessment - Anesthesia/Transfusion/Family Hx Anesthesia History: Prior Anesthesia Without Reaction Family History of Anesthesia Reaction: No Transfusion History: No Prior Transfusion(s) Intubation History: Unknown - Review of Systems General: No Symptoms Pulmonary: No Symptoms Cardiovascular: No Symptoms Gastrointestinal: Abdominal Pain, Nausea, Other (positive hemoccult test, heartburns) Neurological: No Symptoms Other: Reports: None - Physical Assessment Vital Signs: Last Vital Signs Temp 36.5 C 11/11/20 08:14 Pulse 96 11/11/20 08:14 Resp 16 11/11/20 08:14 BP 121/74 11/11/20 08:14 Pulse Ox 98 11/11/20 08:14 Height: 5 ft Weight: 79.379 kg ASA Class: 2 Mental Status: Alert & Oriented x3 Airway Class: Mallampati = 1 Dentition: Reports: Normal Dentition Thyro-Mental Finger Breadths: 3 Mouth Opening Finger Breadths: 3 ROM/Head Extension: Full Lungs: Clear to Auscultation, Normal Respiratory Effort Cardiovascular: Regular Rate, Regular Rhythm - Allergies Allergies/Adverse Reactions: Allergies Allergy/AdvReac Type Severity Reaction Status Date / Time animal dander Allergy Shortness Verified 11/11/20 08:19 of Breath - Blood Blood Available: No - Anesthesia Plan Pre-Op Medication Ordered: None - Acknowledgements Anesthesia Type Planned: MAC Pt an Appropriate Candidate for the Planned Anesthesia: Yes Alternatives and Risks of Anesthesia Discussed w Pt/Guardian: Yes Pt/Guardian Understands and Agrees with Anesthesia Plan: Yes PreAnesthesia Questionnaire HEENT History: Reports: Other (See Below) Other HEENT History: wears glasses Cardiovascular History: Reports: Hypertension Respiratory History: Reports: Asthma Other Respiratory History: states has not used her inhaler in years Gastrointestinal History: Reports: None Genitourinary History: Reports: None 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: Endometrial Ablation, Endometriosis Musculoskeletal History: Reports: None Neurological History: Reports: None Psychiatric History: Reports: Anxiety Endocrine/Metabolic History: Reports: Obesity/BMI 30+ (BMI 34.2) Hematologic History: Reports: None Immunologic History: Reports: None Oncologic (Cancer) History: Reports: None Dermatologic History: Reports: None - Infectious Disease History Infectious Disease History: Reports: Chicken Pox - Past Surgical History Head Surgeries/Procedures: Reports: None HEENT Surgical History: Reports: Tonsillectomy Cardiovascular Surgical History: Reports: None Respiratory Surgical History: Reports: None GI Surgical History: Reports: Cholecystectomy Female Surgical History: Reports: Hysterectomy, Tubal Ligation Other Female Surgeries/Procedures: laparoscopy Endocrine Surgical History: Reports: None Neurological Surgical History: Reports: None Musculoskeletal Surgical History: Reports: Other (See Below) Other Musculoskeletal Surgeries/Procedures:: left foot surgery Oncologic Surgical History: Reports: None Dermatological Surgical History: Reports: None - SUBSTANCE USE Tobacco Use Status *Q: Never Tobacco User - HOME MEDS Home Medications: Home Meds Metoprolol Succinate [Toprol XL] 50 mg PO DAILY 09/26/19 [History] Montelukast [Singulair] 10 mg PO BEDTIME 09/26/19 [History] amLODIPine [Norvasc] 2.5 mg PO DAILY 09/26/19 [History] PARoxetine HCL [Paroxetine HCl] 10 mg PO DAILY 05/04/20 [History] Albuterol Sulfate [Albuterol Sulfate HFA] 1 - 2 puff INH ASDIRECTED PRN 11/08/20 [History] - CURRENT (IN HOUSE) MEDS Current Meds: Current Medications Lactated Ringer's (Ringers, Lactated) 1,000 mls @ 125 mls/hr IV ASDIRECTED AISHA Last Admin: 11/11/20 08:19 Dose: 125 mls/hr Documented by: Discontinued Medications Fentanyl (Sublimaze) Confirm Administered Dose 100 mcg .ROUTE .STK-MED ONE Stop: 11/11/20 07:23 Lidocaine (Xylocaine-Mpf 2%) Confirm Administered Dose 5 ml .ROUTE .STK-MED ONE Stop: 11/11/20 07:23 Midazolam HCl (Versed 1 Mg/Ml) Confirm Administered Dose 2 mg .ROUTE .STK-MED ONE Stop: 11/11/20 07:23 Propofol (Diprivan 20 Ml) Confirm Administered Dose 400 mg .ROUTE .STK-MED ONE Stop: 11/11/20 07:23
[2020-11-11] MEDS ORDERED: Propofol 200 MG/20 ML SDV ONE ×2 (09:29)
[2020-11-11] MEDS ORDERED: fentaNYL 250 MCG/5 ML SDV ONE (10:01)
[2020-11-11] MEDS ORDERED: Lactated Ringers 1,000 ML IV SCH (10:15)
--- NOTE | 2020-11-11 10:17 | PCM.OPNOTE ---
- General Post-Op/Procedure Note Date of Surgery/Procedure: 11/11/20 Operative Procedure(s): Esophagogastroduodenoscopy with biopsy. Colonoscopy. Pre Op Diagnosis: Heartburn with nausea. Rectal bleeding. Post-Op Diagnosis: Mild to moderate chronic gastritis with acute superficial ulceration. No evidence of colonic neoplasia. Anesthesia Technique: MAC (ASA II) Primary Surgeon: Edwin Flores Bone Grinder: [place] Condition: Good Free Text/Narrative:: DICTATION [id number] CPT CODE [id number]
--- NOTE | 2020-11-11 10:45 | PCM.POSTAN ---
POST ANESTHESIA ASSESSMENT - MENTAL STATUS Mental Status: Alert, Oriented - VITAL SIGNS Vital Signs: Last Vital Signs Temp 36.5 C 11/11/20 08:14 Pulse 84 11/11/20 10:20 Resp 16 11/11/20 10:20 BP 117/75 11/11/20 10:20 Pulse Ox 97 11/11/20 10:20 - RESPIRATORY Respiratory Status: Respiratory Rate WNL, Airway Patent, O2 Saturation Stable - CARDIOVASCULAR CV Status: Pulse Rate WNL, Blood Pressure Stable - GASTROINTESTINAL GI Status: No Symptoms - PAIN Pain Score: 0 - POST OP HYDRATION Hydration Status: Adequate & Stable - OBSERVATIONS Free Text/Narrative:: No anesthesia problems
--- NOTE | 2020-11-11 10:46 | PCM48HPAN ---
Post Anesthesia Note - EVALUATION WITHIN 48HRS OF ANESTHETIC Vital Signs in Normal Range: Yes Patient Participated in Evaluation: Yes Respiratory Function Stable: Yes Airway Patent: Yes Cardiovascular Function Stable: Yes Hydration Status Stable: Yes Pain Control Satisfactory: Yes Nausea and Vomiting Control Satisfactory: Yes Mental Status Recovered: Yes Vital Signs: Last Vital Signs Temp 36.5 C 11/11/20 08:14 Pulse 84 11/11/20 10:20 Resp 16 11/11/20 10:20 BP 117/75 11/11/20 10:20 Pulse Ox 97 11/11/20 10:20 - COMMENTS/OBSERVATIONS Free Text/Narrative:: No anesthesia problems
[2020-11-11 11:24] VITALS: BP 133/64; PULSE 81
--- NOTE | 2020-11-11 13:26 | OR ---
SURGEON: Edwin Flores M.D. DATE OF PROCEDURE: 11/11/2020 OPERATION PERFORMED: Colonoscopy. PRIMARY SURGEON: Edwin Flores M.D. LOAN ADVISER: DANA Norton student. ANESTHESIA: MAC. ASA CLASSIFICATION: 2. PREOPERATIVE DIAGNOSIS: Rectal bleeding. POSTOPERATIVE DIAGNOSIS: No evidence of neoplasia. No acute hemorrhoids. DESCRIPTION OF PROCEDURE: The patient was maintained on the endoscopy table in the left lateral decubitus position. The colonoscope was inserted into the rectum and advanced without difficulty to the cecum. The cecum was identified by internal landmarks and external pressure. The colonoscope was then straightened and slowly withdrawn. The cecum, ascending colon, hepatic flexure, transverse colon, splenic flexure, descending colon, sigmoid colon, and rectum were very well visualized. No tumors, polyps, diverticula, or angiodysplastic changes were noted anywhere in the lower gastrointestinal tract. The colonoscope was withdrawn to the rectum and retroflexed to visualize the anal orifice from above. Again, no tumors or polyps were seen, and there were no acute hemorrhoidal changes or bleeding lesions. The colonoscope was then straightened, the rectum aspirated, and the colonoscope removed. The patient tolerated the procedure well and was taken to recovery room in stable condition. PARISH / SHAMA /[id number]
--- NOTE | 2020-11-11 13:50 | OR ---
SURGEON: Edwin Flores M.D. DATE OF PROCEDURE: 11/11/2020 OPERATION PERFORMED: Esophagogastroduodenoscopy with gastric biopsy. PRIMARY SURGEON: Edwin Flores M.D. FURNITURE SALES ASSOCIATE: DANA Sotelo student. ANESTHESIA: MAC. ASA CLASSIFICATION: 2. PREOPERATIVE DIAGNOSIS: Heartburn with nausea. POSTOPERATIVE DIAGNOSIS: Mild to moderate chronic gastritis with superficial distal gastric ulcer. DESCRIPTION OF PROCEDURE: The patient was taken to the endoscopy room and positioned on the endoscopy table in the left lateral decubitus position. Time-out was called for appropriate identification of the patient and procedure. Monitored anesthesia care was provided. Bite block was placed between the patient's teeth. The gastroscope was inserted through the bite block into the oropharynx and advanced without difficulty through the esophagus and stomach into the duodenum where examination was now carried out in a retrograde fashion. The duodenum shows no acute inflammatory changes or ulcerations. The antrum does show mild-to- moderate gastritis, and antral biopsies were obtained to look for the presence of Helicobacter pylori. The gastroscope was then retroflexed to visualize the proximal stomach. No hiatal hernia was noted and there were no inflammatory changes, ulcerations, or polyps in the proximal stomach. The GE junction is well defined and shows no acute inflammatory changes or ulcerations. The esophagus itself demonstrates good contractility. No mid or proximal lesions were identified. The vocal cords were briefly visualized as the scope was withdrawn and noted to move symmetrically. The gastroscope was then removed with the patient having tolerated the procedure well. Following colonoscopy, she was taken to recovery room in stable condition. PARISH / SHAMA /[id number]
== END 2020-11-11 11:04 | disposition home or self-care (01) ==
LOC: MW.SDS 08:01
PROVIDERS: ATTEND Surgery
DX: K62.5 Hemorrhage of anus and rectum (principal); K29.50 Unspecified chronic gastritis without bleeding; K25.9 Gastric ulcer, unspecified as acute or chronic, without hemorrhage or perforation; I10 Essential (primary) hypertension; E66.9 Obesity, unspecified; B96.81 Helicobacter pylori [H. pylori] as the cause of diseases classified elsewhere; Z79.899 Other long term (current) drug therapy; Z90.49 Acquired absence of other specified parts of digestive tract; Z98.890 Other specified postprocedural states; Z68.34 Body mass index [BMI] 34.0-34.9, adult; Z80.3 Family history of malignant neoplasm of breast
CPT/HCPCS: 43239; 45378; J2250; J2704; J3010; J7120; 00813; 88305; 88312

== ENCOUNTER 2021-08-13 01:39 | Observation (INO) | payer BC ==
[2021-08-13] MEDS ORDERED: Sodium Chloride 0.9% 2.5 ML Syringe FLUSH PRN (01:44)
[2021-08-13] MEDS ORDERED: Sodium Chloride 0.9% 10 ML Syringe FLUSH PRN (01:44)
[2021-08-13] MEDS ORDERED: Ondansetron 4 MG/2 ML SDV ONE ×2 (01:58→13:01)
[2021-08-13] MEDS ORDERED: Ondansetron 4 MG/2 ML SDV IVPUSH ONE ×3 (01:59→09:56)
--- NOTE | 2021-08-13 02:04 | EDM.PDOC ---
<Triston Brady - Last Filed: 08/13/21 06:40> ED HPI GENERAL MEDICAL PROBLEM - General Chief Complaint: Abdominal Pain Stated Complaint: SEVERE ABDOMINAL PAIN Time Seen by Provider: 08/13/21 01:44 Source of Information: Reports: Patient History Limitations: Reports: No Limitations - History of Present Illness INITIAL COMMENTS - FREE TEXT/NARRATIVE: 31-year-old female with history of bilateral salpingectomy, hysterectomy, endometriosis, cholecystectomy presents with acute onset postcoital suprapubic pain about 1 hour ago. She was having nonaggressive, nonviolent intercourse with her significant other, there was no foreign instrumentation used during intercourse, she went to the bathroom after sex to urinate, and started having progressive worsening suprapubic cramping that is nonradiating, constant, no alleviating or exacerbating factors. She was dry heaving but denies fever, chills, diarrhea, dysuria, vaginal bleeding. ROS: A 10-point review of systems, other than pertinent positives and negatives as stated per HPI, is otherwise negative Past medical history: No additional pertinent history Past Surgical history: No additional pertinent history Social history: No additional pertinent history Family history: No additional pertinent history PHYSICAL EXAM General: AOx4, GCS = 15, moderate distress HEENT: dry mucous membrane Neck: supple, no meningismus, no Kernig or Brudzinski Cardiac: S1S2 RRR Respiratory: CTAB, no crackles or rales, no wheezing Abdomen: Soft, suprapubic tenderness, no rebound or guarding, nondistended, no pulsatile mass. Back: nontender Musculoskeletal: NVI distally, no deformity Neuro: No focal deficits, CN 2 - 12 WNL. Lower Abdomen Pain Score (Numeric/FACES): 9 - Related Data Allergies Allergy/AdvReac Type Severity Reaction Status Date / Time animal dander Allergy Shortness Verified 08/13/21 01:50 of Breath Home Meds: Home Meds Montelukast [Singulair] 10 mg PO BEDTIME 09/26/19 [History] PARoxetine HCL [Paroxetine HCl] 10 mg PO DAILY 05/04/20 [History] Albuterol Sulfate [Albuterol Sulfate HFA] 1 - 2 puff INH ASDIRECTED PRN 11/08/20 [History] Past Medical History HEENT History: Reports: Other (See Below) Other HEENT History: wears glasses Cardiovascular History: Reports: Hypertension Respiratory History: Reports: Asthma Other Respiratory History: states has not used her inhaler in years Gastrointestinal History: Reports: None Genitourinary History: Reports: None [employer] History: Reports: Endometrial Ablation, Endometriosis, Other (See Below) Other [employer]ENT History: hysterectomy Musculoskeletal History: Reports: None Neurological History: Reports: None Psychiatric History: Reports: None Endocrine/Metabolic History: Reports: None Hematologic History: Reports: None Immunologic History: Reports: None Oncologic (Cancer) History: Reports: None Dermatologic History: Reports: None - Infectious Disease History Infectious Disease History: Reports: Chicken Pox - Past Surgical History Head Surgeries/Procedures: Reports: None HEENT Surgical History: Reports: Tonsillectomy Cardiovascular Surgical History: Reports: None Respiratory Surgical History: Reports: None GI Surgical History: Reports: Cholecystectomy Female Surgical History: Reports: Hysterectomy, Tubal Ligation Other Female Surgeries/Procedures: laparoscopy Endocrine Surgical History: Reports: None Neurological Surgical History: Reports: None Musculoskeletal Surgical History: Reports: Other (See Below) Other Musculoskeletal Surgeries/Procedures:: left foot surgery Oncologic Surgical History: Reports: None Dermatological Surgical History: Reports: None Social & Family History - Family History Family Medical History: No Pertinent Family History - Tobacco Use Tobacco Use Status *Q: Never Tobacco User - Caffeine Use Caffeine Use: Reports: Coffee - Alcohol Use Days Per Week of Alcohol Use: 7 Number of Drinks Per Day: 7 Total Drinks Per Week: 49 - Recreational Drug Use Recreational Drug Use: No ED ROS GENERAL - Review of Systems Review Of Systems: See Below (see dictation) ED EXAM, GENERAL - Physical Exam Exam: See Below (see dictation) Course - Re-Assessments/Exams Free Text/Narrative Re-Assessment/Exam: 08/13/21 06:40 Patient's pelvic pain is unchanged despite 2 doses of Dilaudid and Toradol 30 mg IV, will admit for intractable pain, case discussed with Dr. Maciel, he recommends transvaginal ultrasound Departure - Departure Disposition: Refer to Observation Clinical Impression: RLQ abdominal pain - Discharge Information Referrals: PCP,None [Primary Care Provider] - Forms: ED Department Discharge <Maximus Villafuerte - Last Filed: 08/13/21 10:12> Course - Vital Signs Last Recorded V/S: Last Vital Signs Temp 97.3 F 08/13/21 01:51 Pulse 78 08/13/21 07:07 Resp 16 08/13/21 07:07 BP 110/61 08/13/21 07:07 Pulse Ox 95 08/13/21 07:07 - Orders/Labs/Meds Orders: Active Orders 24 hr Category Date Time Status CBC WITH AUTO DIFF [HEME] Stat Lab 08/13/21 10:11 Ordered Ciprofloxacin in D5W [Cipro in D5W 400 MG/200 ML] 400 Med 08/13/21 09:30 Active mg Premix Bag 1 bag IV Q12H Sodium Chloride 0.9% [Saline Flush] Med 08/13/21 01:44 Active 10 ml FLUSH ASDIRECTED PRN Sodium Chloride 0.9% [Saline Flush] Med 08/13/21 01:44 Active 2.5 ml FLUSH ASDIRECTED PRN metroNIDAZOLE/Normal Saline [Flagyl in NS 500 MG/100 ML Med 08/13/21 09:25 Active ] 500 mg Premix Bag 1 bag IV ONETIME Saline Lock Insert [OM.PC] Stat Oth 08/13/21 01:45 Ordered Medication Orders Ciprofloxacin/Dextrose 400 mg/ (Premix) 200 mls @ 200 mls/hr IV Q12H AISHA Metronidazole 500 mg/ Premix 100 mls @ 100 mls/hr IV ONETIME ONE Stop: 08/13/21 10:24 Sodium Chloride (Sodium Chloride 0.9% 10 Ml Syringe) 10 ml FLUSH ASDIRECTED PRN PRN Reason: Keep Vein Open Last Admin: 08/13/21 02:04 Dose: 10 ml Documented by: NAKUL Sodium Chloride (Sodium Chloride 0.9% 2.5 Ml Syringe) 2.5 ml FLUSH ASDIRECTED PRN PRN Reason: Keep Vein Open Last Admin: 08/13/21 02:04 Dose: 2.5 ml Documented by: NAKUL Labs: Laboratory Tests 08/13/21 08/13/21 08/13/21 Range/Units 01:55 01:55 02:00 WBC 17.24 H (4.0-11.0) K/uL RBC 4.73 (4.30-5.90) M/uL Hgb 15.0 (12.0-16.0) g/dL Hct 43.6 (36.0-46.0) % MCV 92.2 (80.0-98.0) fL MCH 31.7 (27.0-32.0) pg MCHC 34.4 (31.0-37.0) g/dL RDW Std Deviation 44.0 (28.0-62.0) fl RDW Coeff of Dane 13 (11.0-15.0) % Plt Count 464 H (150-400) K/uL MPV 9.70 (7.40-12.00) fL Add Manual Diff YES Neutrophils % (Manual) 56 (48.0-80.0) % Lymphocytes % (Manual) 31 (16.0-40.0) % Monocytes % (Manual) 5 (0.0-15.0) % Eosinophils % (Manual) 7 (0.0-7.0) % Basophils % (Manual) 1 (0.0-1.5) % Nucleated RBC % 0.0 /100WBC Absolute Seg Neuts 9.7 H (1.4-5.7) Lymphocytes # (Manual) 5.3 H (0.6-2.4) Monocytes # (Manual) 0.9 H (0.0-0.8) Eosinophils # (Manual) 1.2 H (0.0-0.7) Basophils # (Manual) 0.2 H (0.0-0.1) Nucleated RBCs # 0 K/uL Sodium 140 (136-145) mmol/L Potassium 3.7 (3.5-5.1) mmol/L Chloride 101 (98-107) mmol/L Carbon Dioxide 27.6 (21.0-32.0) mmol/L BUN 11 (7.0-18.0) mg/dL Creatinine 0.9 (0.6-1.0) mg/dL Est Cr Clr Drug Dosing 65.05 mL/min Estimated GFR (MDRD) > 60.0 ml/min Glucose 110 H (74-106) mg/dL Calcium 9.6 (8.5-10.1) mg/dL Total Bilirubin 0.6 (0.2-1.0) mg/dL AST 24 (15-37) IU/L ALT 41 (14-63) IU/L Alkaline Phosphatase 79 (46-116) U/L Total Protein 8.8 H (6.4-8.2) g/dL Albumin 3.8 (3.4-5.0) g/dL Globulin 5.0 H (2.6-4.0) g/dL Albumin/Globulin Ratio 0.8 L (0.9-1.6) Lipase 157 (73-393) U/L Urine Color YELLOW Urine Appearance HAZY Urine pH 5.5 (5.0-8.0) Ur Specific [place] 1.025 (1.001-1.035) Urine Protein NEGATIVE (NEGATIVE) mg/dL Urine Glucose (UA) NEGATIVE (NEGATIVE) mg/dL Urine Ketones NEGATIVE (NEGATIVE) mg/dL Urine Occult Blood SMALL H (NEGATIVE) Urine Nitrite NEGATIVE (NEGATIVE) Urine Bilirubin NEGATIVE (NEGATIVE) Urine Urobilinogen 0.2 (<2.0) EU/dL Ur Leukocyte Esterase NEGATIVE (NEGATIVE) Urine RBC 0-2 (0-2/HPF) Urine WBC 0-1 (0-5/HPF) Ur Epithelial Cells RARE (NONE-FEW) Urine Bacteria FEW (NEGATIVE) Urine HCG, Qual (NEGATIVE) SARS-CoV-2 RNA (MARTINA) (NEGATIVE) 08/13/21 08/13/21 Range/Units 02:00 05:30 WBC (4.0-11.0) K/uL RBC (4.30-5.90) M/uL Hgb (12.0-16.0) g/dL Hct (36.0-46.0) % MCV (80.0-98.0) fL MCH (27.0-32.0) pg MCHC (31.0-37.0) g/dL RDW Std Deviation (28.0-62.0) fl RDW Coeff of Dane (11.0-15.0) % Plt Count (150-400) K/uL MPV (7.40-12.00) fL Add Manual Diff Neutrophils % (Manual) (48.0-80.0) % Lymphocytes % (Manual) (16.0-40.0) % Monocytes % (Manual) (0.0-15.0) % Eosinophils % (Manual) (0.0-7.0) % Basophils % (Manual) (0.0-1.5) % Nucleated RBC % /100WBC Absolute Seg Neuts (1.4-5.7) Lymphocytes # (Manual) (0.6-2.4) Monocytes # (Manual) (0.0-0.8) Eosinophils # (Manual) (0.0-0.7) Basophils # (Manual) (0.0-0.1) Nucleated RBCs # K/uL Sodium (136-145) mmol/L Potassium (3.5-5.1) mmol/L Chloride (98-107) mmol/L Carbon Dioxide (21.0-32.0) mmol/L BUN (7.0-18.0) mg/dL Creatinine (0.6-1.0) mg/dL Est Cr Clr Drug Dosing mL/min Estimated GFR (MDRD) ml/min Glucose (74-106) mg/dL Calcium (8.5-10.1) mg/dL Total Bilirubin (0.2-1.0) mg/dL AST (15-37) IU/L ALT (14-63) IU/L Alkaline Phosphatase (46-116) U/L Total Protein (6.4-8.2) g/dL Albumin (3.4-5.0) g/dL Globulin (2.6-4.0) g/dL Albumin/Globulin Ratio (0.9-1.6) Lipase (73-393) U/L Urine Color Urine Appearance Urine pH (5.0-8.0) Ur Specific [place] (1.001-1.035) Urine Protein (NEGATIVE) mg/dL Urine Glucose (UA) (NEGATIVE) mg/dL Urine Ketones (NEGATIVE) mg/dL Urine Occult Blood (NEGATIVE) Urine Nitrite (NEGATIVE) Urine Bilirubin (NEGATIVE) Urine Urobilinogen (<2.0) EU/dL Ur Leukocyte Esterase (NEGATIVE) Urine RBC (0-2/HPF) Urine WBC (0-5/HPF) Ur Epithelial Cells (NONE-FEW) Urine Bacteria (NEGATIVE) Urine HCG, Qual NEGATIVE (NEGATIVE) SARS-CoV-2 RNA (MARTINA) NEGATIVE (NEGATIVE) Meds: Medications Generic Name Dose Route Start Last Admin Trade Name Freq PRN Reason Stop Dose Admin Ciprofloxacin/Dextrose 400 mg/ 200 mls @ 200 mls/hr 08/13/21 09:30 Premix IV Q12H AISHA Metronidazole 500 mg/ Premix 100 mls @ 100 mls/hr 08/13/21 09:25 IV 08/13/21 10:24 ONETIME ONE Sodium Chloride 10 ml 08/13/21 01:44 08/13/21 02:04 Sodium Chloride 0.9% 10 Ml Syringe FLUSH 10 ml ASDIRECTED PRN Administration Keep Vein Open Sodium Chloride 2.5 ml 08/13/21 01:44 08/13/21 02:04 Sodium Chloride 0.9% 2.5 Ml Syringe FLUSH 2.5 ml ASDIRECTED PRN Administration Keep Vein Open Discontinued Medications Generic Name Dose Route Start Last Admin Trade Name Freq PRN Reason Stop Dose Admin Hydromorphone HCl 1 mg 08/13/21 02:05 08/13/21 02:14 Hydromorphone 1 Mg/Ml Syringe IVPUSH 08/13/21 02:06 1 mg ONETIME ONE Administration Hydromorphone HCl 1 mg 08/13/21 03:59 08/13/21 04:09 Hydromorphone 1 Mg/Ml Syringe IVPUSH 08/13/21 04:00 1 mg ONETIME ONE Administration Hydromorphone HCl 1 mg 08/13/21 07:43 08/13/21 07:51 Hydromorphone 1 Mg/Ml Syringe IVPUSH 08/13/21 07:44 1 mg ONETIME ONE Administration Lactated Ringer's 1,000 mls @ 999 mls/hr 08/13/21 02:05 08/13/21 02:14 Ringers, Lactated IV 08/13/21 03:05 999 mls/hr .BOLUS ONE Administration Iopamidol 100 ml 08/13/21 02:08 08/13/21 02:46 Iopamidol 755 Mg/Ml 100 Ml Bottle IVPUSH 08/13/21 02:09 100 ml ONETIME ONE Administration Ketorolac Tromethamine 30 mg 08/13/21 03:59 08/13/21 04:08 Ketorolac 30 Mg/Ml Sdv IVPUSH 08/13/21 04:00 30 mg ONETIME ONE Administration Ondansetron HCl 4 mg 08/13/21 01:59 08/13/21 02:03 Ondansetron 4 Mg/2 Ml Sdv IVPUSH 08/13/21 02:00 4 mg ONETIME ONE Administration Ondansetron HCl Confirm 08/13/21 01:58 08/13/21 02:03 Ondansetron 4 Mg/2 Ml Sdv Administered 08/13/21 01:59 Not Given Dose 4 mg .ROUTE .STK-MED ONE Ondansetron HCl 4 mg 08/13/21 05:35 08/13/21 05:38 Ondansetron 4 Mg/2 Ml Sdv IVPUSH 08/13/21 05:36 4 mg ONETIME ONE Administration Ondansetron HCl 4 mg 08/13/21 09:56 Ondansetron 4 Mg/2 Ml Sdv IVPUSH 08/13/21 09:57 ONETIME ONE - Re-Assessments/Exams Free Text/Narrative Re-Assessment/Exam: 08/13/21 10:09 Patient was signed out to me pending a ultrasound. Ultrasound showed free fluid and a possible stone. It was unclear if the stone came from a ruptured appendix. We called general surgery Dr. Villatoro who evaluated the patient and we also spoke to radiology who sees the intact appendix and thinks this may have been from the previous gallbladder surgery. Patient still in a significant amount of pain and we got the initial read back from ultrasound we did give her antibiotics Cipro and Flagyl. I did speak with general surgery they recommended admission to medicine for pain control. The hospitalist Dr. Maciel wanted me to also consult [employer] I spoke with Dr. Hess who states that he will see the patient as needed and has been made aware. 08/13/21 10:11 Patient still has some abdominal pain and general surgery reevaluated and states she has good amount of pain in the right lower quadrant and will take her to the OR to remove the appendix. Departure - Departure Time of Disposition: 10:12 Condition: Good - Discharge Information *PRESCRIPTION DRUG MONITORING PROGRAM REVIEWED*: Not Applicable *COPY OF PRESCRIPTION DRUG MONITORING REPORT IN PATIENT MAT: Not Applicable Sepsis Event Note (ED) - Focused Exam Vital Signs: Vital Signs Temp Pulse Resp BP Pulse Ox 08/13/21 07:07 78 16 110/61 95 08/13/21 06:08 90 18 101/61 95 08/13/21 05:24 94 18 122/78 99 08/13/21 04:04 96 17 111/74 96 08/13/21 02:47 104 H 17 119/73 95 08/13/21 01:51 97.3 F 82 20 156/99 H 97 - My Orders Last 24 Hours: My Active Orders 08/13/21 09:25 metroNIDAZOLE/Normal Saline [Flagyl in NS 500 MG/100 ML] 500 mg Premix Bag 1 bag IV ONETIME 08/13/21 09:30 Ciprofloxacin in D5W [Cipro in D5W 400 MG/200 ML] 400 mg Premix Bag 1 bag IV Q12H - Assessment/Plan Last 24 Hours: My Active Orders 08/13/21 09:25 metroNIDAZOLE/Normal Saline [Flagyl in NS 500 MG/100 ML] 500 mg Premix Bag 1 bag IV ONETIME 08/13/21 09:30 Ciprofloxacin in D5W [Cipro in D5W 400 MG/200 ML] 400 mg Premix Bag 1 bag IV Q12H
[2021-08-13] MEDS ORDERED: HYDROmorphone 1 MG/ML Syringe IVPUSH ONE ×3 (02:05→07:43)
[2021-08-13] MEDS ORDERED: Lactated Ringers 1,000 ML IV ONE (02:05)
[2021-08-13] MEDS ORDERED: Iopamidol 755 Mg/ML 100 ML Bottle IVPUSH ONE (02:08)
[2021-08-13 02:22] LABS: BLOOD UREA NITROGEN,BUN 11 mg/dL (7.0-18.0); CARBON DIOXIDE,CO2 27.6 mmol/L (21.0-32.0); CHLORIDE,CL 101 mmol/L (98-107); GLUCOSE RANDOM 110 mg/dL (74-106); LIPASE 157 U/L (73-393); POTASSIUM,K 3.7 mmol/L (3.5-5.1); SODIUM,NA 140 mmol/L (136-145)
--- NOTE | 2021-08-13 02:56 | CT ---
Indication: Lower abdominal pain. Technique: Multiple contiguous axial images were obtained from the lung bases is symphysis pubis after the intravenous and administration of 100 cc Isovue 370. Please note that all CT scans at this facility use dose modulation, iterative reconstruction, and/or weight-based dosing when appropriate to reduce radiation dose to as low as reasonably achievable. Comparison: CT scan dated October 10, 2020 Findings: The lung bases are clear. The heart is normal in size. No pericardial effusion is identified. The liver, spleen, pancreas, adrenals, and kidneys are normal. Postsurgical changes of cholecystectomy are identified. No intrahepatic biliary ductal dilatation is identified. No hydronephrosis is identified. In the pelvis, the urinary bladder is normal. No uterus is identified. A small amount of free fluid is identified and the pelvis. In the left lower quadrant, a fluid collection is identified which has a surrounding rim of enhancement. This is best seen on image number 140, series 201. This measures approximately 3.7 x 2.2 centimeters in size. This may potentially represent a residual left ovary. If no residual ovary is present, then this may potentially represent a loculated fluid collection/abscess. No free air is identified within the abdomen or pelvis. The small and large bowel are normal in caliber. The aorta is normal in caliber. No lytic or blastic lesions of the spine are identified. Impression: Small amount free fluid in the pelvis. A small fluid collection is identified in the left lower quadrant. This appears to have some soft tissue around it. This was not clearly present on the October 10, 2020 study. However, when I called the ER, the nurse asked the patient and specifically the patient does have residual left ovary. Therefore, this may represent a left ovarian cyst with physiologic amount of free fluid in the pelvis. Follow-up is recommended. If clinically indicated, an ultrasound of the pelvis could be performed. Please note that all CT scans at this facility use dose modulation, iterative reconstruction, and/or weight-based dosing when appropriate to reduce radiation dose to as low as reasonably achievable. Dictated by Saumya Melendez MD @ 08/13/2021 2:55:54 AM (Electronically Signed)
[2021-08-13] MEDS ORDERED: Ketorolac 30 MG/ML SDV IVPUSH ONE (03:59)
--- NOTE | 2021-08-13 09:08 | US ---
INDICATION: Pelvic pain COMPARISON: none TECHNIQUE: 2D marie scale and color Doppler images were acquired of the pelvis using a transabdominal and transvaginal approach. FINDINGS: The patient is status post hysterectomy. The ovaries demonstrate follicular development. The right ovary measures 3.0 x 2.5 x 1.7 cm in size and the left ovary measures 4.9 x 2.6 x 2.1 cm. The ovaries demonstrate normal arterial and venous blood flow on color Doppler analysis. There is a trace amount of fluid adjacent to the left ovary and there is free fluid in the pelvic cul-de-sac. Within the dependent portion of the fluid there is a 4 mm echogenic focus with acoustic shadowing suggesting a small stone. IMPRESSION: Free fluid in the low pelvis with suggestion of a small stone within the fluid. This could be correlated with the patient`s history and could reflect a perforated appendix with release of a small appendicolith into the lower peritoneal space. Dictated by Young Wang MD @ 08/13/2021 9:06:07 AM (Electronically Signed)
[2021-08-13] MEDS ORDERED: metroNIDAZOLE/Normal Saline 500 MG in Premix Bag 1 BAG IV ONE (09:25)
[2021-08-13] MEDS: Ciprofloxacin in D5W 400 MG in Premix Bag 1 BAG IV SCH ×4 (10:20→21:52)
--- NOTE | 2021-08-13 10:39 | PCM.SN.2 ---
- Free Text/Narrative Note: pain, elevated wbc, pin point time happening, all suggested possible perf appendicitis; proceed w surgery; pt concurred; ivf/abx; rb dw pt re bleeding/infection/damage to nearby organ/possible take out a normal appendix/postop course; pt concur; [id number]
[2021-08-13] MEDS ORDERED: Lactated Ringers 1,000 ML IV SCH ×3 (10:45→13:45)
[2021-08-13] MEDS ORDERED: Famotidine 20 MG/2 ML SDV IVPUSH ONE (10:49)
[2021-08-13] MEDS ORDERED: Scopolamine 1.5 MG Transdermal Patch TRDERM PRN (10:50)
[2021-08-13] MEDS ORDERED: Dexamethasone 4 MG/ML SDV IVPUSH ONE (10:55)
[2021-08-13] MEDS ORDERED: propofoL 100 ML ONE (11:05)
[2021-08-13] MEDS ORDERED: fentaNYL 250 MCG/5 ML SDV ONE ×2 (11:06→12:29)
[2021-08-13] MEDS ORDERED: Bupivacaine 25%/EPINEPHrine/PF 30 ML ONE (11:20)
[2021-08-13] MEDS ORDERED: Octyl 2-Cyanoacrylate 1 Tube ONE (11:20)
--- NOTE | 2021-08-13 11:25 | PCM.PREANE ---
Preanesthetic Assessment - Anesthesia/Transfusion/Family Hx Anesthesia History: Prior Anesthesia Without Reaction Type of Anesthesia Reaction: Other (see below) (PONV) Family History of Anesthesia Reaction: No Transfusion History: No Prior Transfusion(s) Intubation History: Unknown - Review of Systems General: Other (Curent nausea and vomiting) Pulmonary: Other (Asthma when having URI does not use inhaler any other time. no recent URI) Gastrointestinal: Nausea, Vomiting Neurological: No Symptoms Other: Reports: None (Hysterectomy) - Physical Assessment NPO Status Date: 08/13/21 NPO Status Time: 02:00 Vital Signs: Last Vital Signs Temp 36.3 C 08/13/21 01:51 Pulse 75 08/13/21 10:27 Resp 16 08/13/21 10:27 BP 151/81 H 08/13/21 10:27 Pulse Ox 98 08/13/21 10:27 Height: 1.52 m Weight: 81.647 kg ASA Class: 3E Mental Status: Alert & Oriented x3 Airway Class: Mallampati = 2 Dentition: Reports: Normal Dentition Thyro-Mental Finger Breadths: 3 Mouth Opening Finger Breadths: 3 ROM/Head Extension: Full Lungs: Clear to Auscultation, Normal Respiratory Effort Cardiovascular: Regular Rate, Regular Rhythm - Lab Values: Laboratory Last Values WBC 17.24 K/uL (4.0-11.0) H 08/13/21 01:55 RBC 4.73 M/uL (4.30-5.90) 08/13/21 01:55 Hgb 15.0 g/dL (12.0-16.0) 08/13/21 01:55 Hct 43.6 % (36.0-46.0) 08/13/21 01:55 MCV 92.2 fL (80.0-98.0) 08/13/21 01:55 MCH 31.7 pg (27.0-32.0) 08/13/21 01:55 MCHC 34.4 g/dL (31.0-37.0) 08/13/21 01:55 RDW Std Deviation 44.0 fl (28.0-62.0) 08/13/21 01:55 RDW Coeff of Dane 13 % (11.0-15.0) 08/13/21 01:55 Plt Count 464 K/uL (150-400) H 08/13/21 01:55 MPV 9.70 fL (7.40-12.00) 08/13/21 01:55 Add Manual Diff YES 08/13/21 01:55 Neutrophils % (Manual) 56 % (48.0-80.0) 08/13/21 01:55 Lymphocytes % (Manual) 31 % (16.0-40.0) 08/13/21 01:55 Monocytes % (Manual) 5 % (0.0-15.0) 08/13/21 01:55 Eosinophils % (Manual) 7 % (0.0-7.0) 08/13/21 01:55 Basophils % (Manual) 1 % (0.0-1.5) 08/13/21 01:55 Nucleated RBC % 0.0 /100WBC 08/13/21 01:55 Absolute Seg Neuts 9.7 (1.4-5.7) H 08/13/21 01:55 Lymphocytes # (Manual) 5.3 (0.6-2.4) H 08/13/21 01:55 Monocytes # (Manual) 0.9 (0.0-0.8) H 08/13/21 01:55 Eosinophils # (Manual) 1.2 (0.0-0.7) H 08/13/21 01:55 Basophils # (Manual) 0.2 (0.0-0.1) H 08/13/21 01:55 Nucleated RBCs # 0 K/uL 08/13/21 01:55 Sodium 140 mmol/L (136-145) 08/13/21 01:55 Potassium 3.7 mmol/L (3.5-5.1) 08/13/21 01:55 Chloride 101 mmol/L (98-107) 08/13/21 01:55 Carbon Dioxide 27.6 mmol/L (21.0-32.0) 08/13/21 01:55 BUN 11 mg/dL (7.0-18.0) 08/13/21 01:55 Creatinine 0.9 mg/dL (0.6-1.0) 08/13/21 01:55 Est Cr Clr Drug Dosing 65.05 mL/min 08/13/21 01:55 Estimated GFR (MDRD) > 60.0 ml/min 08/13/21 01:55 Glucose 110 mg/dL (74-106) H 08/13/21 01:55 Calcium 9.6 mg/dL (8.5-10.1) 08/13/21 01:55 Total Bilirubin 0.6 mg/dL (0.2-1.0) 08/13/21 01:55 AST 24 IU/L (15-37) 08/13/21 01:55 ALT 41 IU/L (14-63) 08/13/21 01:55 Alkaline Phosphatase 79 U/L (46-116) 08/13/21 01:55 Total Protein 8.8 g/dL (6.4-8.2) H 08/13/21 01:55 Albumin 3.8 g/dL (3.4-5.0) 08/13/21 01:55 Globulin 5.0 g/dL (2.6-4.0) H 08/13/21 01:55 Albumin/Globulin Ratio 0.8 (0.9-1.6) L 08/13/21 01:55 Lipase 157 U/L (73-393) 08/13/21 01:55 Urine Color YELLOW 08/13/21 02:00 Urine Appearance HAZY 08/13/21 02:00 Urine pH 5.5 (5.0-8.0) 08/13/21 02:00 Ur Specific Brielle 1.025 (1.001-1.035) 08/13/21 02:00 Urine Protein NEGATIVE mg/dL (NEGATIVE) 08/13/21 02:00 Urine Glucose (UA) NEGATIVE mg/dL (NEGATIVE) 08/13/21 02:00 Urine Ketones NEGATIVE mg/dL (NEGATIVE) 08/13/21 02:00 Urine Occult Blood SMALL (NEGATIVE) H 08/13/21 02:00 Urine Nitrite NEGATIVE (NEGATIVE) 08/13/21 02:00 Urine Bilirubin NEGATIVE (NEGATIVE) 08/13/21 02:00 Urine Urobilinogen 0.2 EU/dL (<2.0) 08/13/21 02:00 Ur Leukocyte Esterase NEGATIVE (NEGATIVE) 08/13/21 02:00 Urine RBC 0-2 (0-2/HPF) 08/13/21 02:00 Urine WBC 0-1 (0-5/HPF) 08/13/21 02:00 Ur Epithelial Cells RARE (NONE-FEW) 08/13/21 02:00 Urine Bacteria FEW (NEGATIVE) 08/13/21 02:00 Urine HCG, Qual NEGATIVE (NEGATIVE) 08/13/21 02:00 SARS-CoV-2 RNA (MARTINA) NEGATIVE (NEGATIVE) 08/13/21 05:30 - Allergies Allergies/Adverse Reactions: Allergies Allergy/AdvReac Type Severity Reaction Status Date / Time animal dander Allergy Shortness Verified 08/13/21 01:50 of Breath - Blood Blood Available: No - Anesthesia Plan Pre-Op Medication Ordered: Beta Madison Beta Madison: Labetalol Med Last Dose Date: 08/12/21 Med Last Dose Time: 08:00 - Acknowledgements Anesthesia Type Planned: General Anesthesia Pt an Appropriate Candidate for the Planned Anesthesia: Yes Alternatives and Risks of Anesthesia Discussed w Pt/Guardian: Yes Pt/Guardian Understands and Agrees with Anesthesia Plan: Yes PreAnesthesia Questionnaire HEENT History: Reports: Other (See Below) Other HEENT History: wears glasses Cardiovascular History: Reports: Hypertension Respiratory History: Reports: Asthma Other Respiratory History: states has not used her inhaler in years Gastrointestinal History: Reports: None Genitourinary History: Reports: None [employer] History: Reports: Endometrial Ablation, Endometriosis, Other (See Below) Other OB/BYN History: hysterectomy Musculoskeletal History: Reports: None Neurological History: Reports: None Psychiatric History: Reports: None Endocrine/Metabolic History: Reports: None Hematologic History: Reports: None Immunologic History: Reports: None Oncologic (Cancer) History: Reports: None Dermatologic History: Reports: None - Infectious Disease History Infectious Disease History: Reports: Chicken Pox - Past Surgical History Head Surgeries/Procedures: Reports: None HEENT Surgical History: Reports: Tonsillectomy Cardiovascular Surgical History: Reports: None Respiratory Surgical History: Reports: None GI Surgical History: Reports: Cholecystectomy Female Surgical History: Reports: Hysterectomy, Tubal Ligation Other Female Surgeries/Procedures: laparoscopy Endocrine Surgical History: Reports: None Neurological Surgical History: Reports: None Musculoskeletal Surgical History: Reports: Other (See Below) Other Musculoskeletal Surgeries/Procedures:: left foot surgery Oncologic Surgical History: Reports: None Dermatological Surgical History: Reports: None - SUBSTANCE USE Tobacco Use Status *Q: Never Tobacco User Days Per Week of Alcohol Use: 7 Number of Drinks Per Day: 7 Total Drinks Per Week: 49 Recreational Drug Use History: No - HOME MEDS Home Medications: Home Meds Montelukast [Singulair] 10 mg PO BEDTIME 09/26/19 [History] PARoxetine HCL [Paroxetine HCl] 10 mg PO DAILY 05/04/20 [History] Albuterol Sulfate [Albuterol Sulfate HFA] 1 - 2 puff INH ASDIRECTED PRN 11/08/20 [History] - CURRENT (IN HOUSE) MEDS Current Meds: Current Medications Ciprofloxacin/Dextrose 400 mg/ (Premix) 200 mls @ 200 mls/hr IV Q12H AISHA Last Admin: 08/13/21 10:20 Dose: 200 mls/hr Documented by: Lactated Ringer's (Ringers, Lactated) 1,000 mls @ 150 mls/hr IV ASDIRECTED AISHA Last Admin: 08/13/21 11:07 Dose: 150 mls/hr Documented by: Lactated Ringer's (Ringers, Lactated) 1,000 mls @ 150 mls/hr IV ASDIRECTED AISHA Scopolamine (Scopolamine 1.5 Mg Transdermal Patch) 1.5 mg TRDERM Q72H PRN PRN Reason: per order Last Admin: 08/13/21 11:06 Dose: 1.5 mg Documented by: Sodium Chloride (Sodium Chloride 0.9% 10 Ml Syringe) 10 ml FLUSH ASDIRECTED PRN PRN Reason: Keep Vein Open Last Admin: 08/13/21 02:04 Dose: 10 ml Documented by: Sodium Chloride (Sodium Chloride 0.9% 2.5 Ml Syringe) 2.5 ml FLUSH ASDIRECTED PRN PRN Reason: Keep Vein Open Last Admin: 08/13/21 02:04 Dose: 2.5 ml Documented by: Discontinued Medications Dexamethasone (Dexamethasone 4 Mg/Ml Sdv) 4 mg IVPUSH ONETIME ONE Stop: 08/13/21 10:56 Last Admin: 08/13/21 11:06 Dose: 4 mg Documented by: Famotidine (Famotidine 20 Mg/2 Ml Sdv) 20 mg IVPUSH ONETIME ONE Stop: 08/13/21 10:50 Last Admin: 08/13/21 11:06 Dose: 20 mg Documented by: Fentanyl (Fentanyl 250 Mcg/5 Ml Sdv) Confirm Administered Dose 250 mcg .ROUTE .STK-MED ONE Stop: 08/13/21 11:07 Hydromorphone HCl (Hydromorphone 1 Mg/Ml Syringe) 1 mg IVPUSH ONETIME ONE Stop: 08/13/21 02:06 Last Admin: 08/13/21 02:14 Dose: 1 mg Documented by: Hydromorphone HCl (Hydromorphone 1 Mg/Ml Syringe) 1 mg IVPUSH ONETIME ONE Stop: 08/13/21 04:00 Last Admin: 08/13/21 04:09 Dose: 1 mg Documented by: Hydromorphone HCl (Hydromorphone 1 Mg/Ml Syringe) 1 mg IVPUSH ONETIME ONE Stop: 08/13/21 07:44 Last Admin: 08/13/21 07:51 Dose: 1 mg Documented by: Lactated Ringer's (Ringers, Lactated) 1,000 mls @ 999 mls/hr IV .BOLUS ONE Stop: 08/13/21 03:05 Last Admin: 08/13/21 02:14 Dose: 999 mls/hr Documented by: Metronidazole 500 mg/ Premix 100 mls @ 100 mls/hr IV ONETIME ONE Stop: 08/13/21 10:24 Propofol (Diprivan 100 Ml) Confirm Administered Dose 100 mls @ as directed .ROUTE .STK-MED ONE Stop: 08/13/21 11:06 Bupivacaine HCl/Epinephrine Bitart (Sensorc Mpf 0.25%-Epi [id number]) Confirm Administered Dose 30 mls @ as directed .ROUTE .STK-MED ONE Stop: 08/13/21 11:21 Iopamidol (Iopamidol 755 Mg/Ml 100 Ml Bottle) 100 ml IVPUSH ONETIME ONE Stop: 08/13/21 02:09 Last Admin: 08/13/21 02:46 Dose: 100 ml Documented by: Ketorolac Tromethamine (Ketorolac 30 Mg/Ml Sdv) 30 mg IVPUSH ONETIME ONE Stop: 08/13/21 04:00 Last Admin: 08/13/21 04:08 Dose: 30 mg Documented by: Octyl Cyanoacrylate (Octyl 2-Cyanoacrylate 1 Tube) Confirm Administered Dose 1 applic .ROUTE .STK-MED ONE Stop: 08/13/21 11:21 Ondansetron HCl (Ondansetron 4 Mg/2 Ml Sdv) 4 mg IVPUSH ONETIME ONE Stop: 08/13/21 02:00 Last Admin: 08/13/21 02:03 Dose: 4 mg Documented by: Ondansetron HCl (Ondansetron 4 Mg/2 Ml Sdv) Confirm Administered Dose 4 mg .ROUTE .STK-MED ONE Stop: 08/13/21 01:59 Last Admin: 08/13/21 02:03 Dose: Not Given Documented by: Ondansetron HCl (Ondansetron 4 Mg/2 Ml Sdv) 4 mg IVPUSH ONETIME ONE Stop: 08/13/21 05:36 Last Admin: 08/13/21 05:38 Dose: 4 mg Documented by: Ondansetron HCl (Ondansetron 4 Mg/2 Ml Sdv) 4 mg IVPUSH ONETIME ONE Stop: 08/13/21 09:57 Last Admin: 08/13/21 10:20 Dose: 4 mg Documented by:
[2021-08-13] MEDS ORDERED: Propofol 200 MG/20 ML SDV ONE (12:44)
--- NOTE | 2021-08-13 12:50 | CONS ---
DATE OF CONSULTATION: 08/13/2021 DATE OF : 1990 PRIMARY CARE PHYSICIAN: None PCP Consult called. The patient seen shortly after. CONSULTING QUESTION: Abdominal pain. HISTORY OF PRESENT ILLNESS: The patient is a 31-year-old lady and BMI of 35 and complains of acute onset exactly at 1:30 this morning of severe abdominal pain. Pain is right lower quadrant and migrated to kind of right midline or periumbilical and sought help in the emergency room. CAT scan shows fluid in the pelvis and white count of 17. Surgery was then consulted. The patient remarked she is currently nauseated and no appetite. Does not even want to eat favorite food and the pain is much worse when car goes through traffic light or the car stopped. ALLERGIES TO MEDICATIONS: Please refer to nursing for details. FAMILY HISTORY: Noncontributory. PAST MEDICAL HISTORY: Significant for hypertension and endometriosis. The patient said both has been stopped treatment. She is doing well. PAST SURGICAL HISTORY: Laparoscopic cholecystectomy and laparoscopic hysterectomy. FAMILY HISTORY: Noncontributory. SOCIAL HISTORY: No tobacco, no alcohol. PHYSICAL EXAMINATION: GENERAL: A very pleasant lady, smiled to the doctor but obviously in pain. HEENT: Normocephalic, atraumatic. Sclerae are anicteric. LUNGS: Clear to auscultation. HEART: Regular rate and rhythm. ABDOMEN: Soft, nondistended. No pulsating tender midline abdominal structure. Exquisite tenderness at the McBurney point, almost jumps off the bed. Positive Rovsing sign and positive rebound tenderness. Upon jump up and down, hurting and feeling pain. DATA: White count is 17 and COVID is negative. Abdominal CAT scan, small amount of free fluid in the pelvis. Transvaginal ultrasound, free fluid in the lower pelvis with a small stone. IMPRESSION AND PLANNING: The patient's pain persists for almost like 12 hours by now. Still excruciating pain and nausea, no appetite. On exam, it is well localized on the McBurney point. White count is high at 17. Imaging study, possible perforated appendicitis. Long discussion with patient, and I also took the trouble calling up the Radiology. They were able to see the appendix, and they think the appendix is not inflamed. However, on examination, the patient clearly had pain on the McBurney point and high white count, and risks and benefits discussed with the patient compared to ovarian cyst rupture versus possible appendicitis or even perforated with appendicolith. The patient concurred to proceed with appendectomy, laparoscopic versus open. Risks and benefits discussed with patient including possible take out of a normal appendix, more infection, bleeding, or damage to nearby organ. The patient concurred to proceed with surgery. As always, thank you for the kind referral. CARLOS / SHAMA /[id number]
[2021-08-13] MEDS ORDERED: Glycopyrrolate 0.2 MG/ML SDV ONE (13:01)
[2021-08-13] MEDS ORDERED: Rocuronium Bromide 50 MG/5 ML Syringe ONE (13:01)
[2021-08-13] MEDS ORDERED: Labetalol 100 MG/20 ML MDV ONE (13:01)
[2021-08-13] MEDS ORDERED: Ketorolac 30 MG/ML SDV ONE (13:01)
[2021-08-13] MEDS ORDERED: HYDROmorphone 2 MG/ML Syringe ONE (13:22)
[2021-08-13] MEDS ORDERED: Ondansetron 4 MG/2 ML SDV IVPUSH PRN (13:33)
--- NOTE | 2021-08-13 13:33 | PCM.OPNOTE ---
- General Post-Op/Procedure Note Date of Surgery/Procedure: 08/13/21 Operative Procedure(s): appendectomy, laparoscopic Findings: appendix is indurated, hardened, with extensive engulfing by surround omentum cw appendicitis; appendicolith is palpable; gross perf not observed; surgicell placed for hemostasis; [id number] Pre Op Diagnosis: acute appendicitis Post-Op Diagnosis: Same Anesthesia Technique: General ET Tube Primary Surgeon: Jose Durán Pathology: sent Complications: None Condition: Good
[2021-08-13] MEDS ORDERED: Morphine 4 MG/ML VIAL IVPUSH PRN (13:34)
[2021-08-13] MEDS ORDERED: diphenhydrAMINE 50 MG/ML SDV ONE (13:37)
--- NOTE | 2021-08-13 14:13 | PCM.POSTAN ---
POST ANESTHESIA ASSESSMENT - MENTAL STATUS Mental Status: Alert, Oriented - VITAL SIGNS Vital Signs: Last Vital Signs Temp 37.2 C 08/13/21 13:22 Pulse 114 H 08/13/21 13:52 Resp 15 08/13/21 13:52 BP 140/91 H 08/13/21 13:52 Pulse Ox 95 08/13/21 13:52 - RESPIRATORY Respiratory Status: Respiratory Rate WNL, Airway Patent, O2 Saturation Stable - CARDIOVASCULAR CV Status: Pulse Rate WNL, Blood Pressure Stable - POST OP HYDRATION Hydration Status: Adequate & Stable - OBSERVATIONS Free Text/Narrative:: Pt extubated when awake to 4L NC and transported to PACU on 4 L NC. Pt complained of abdominal pain and 1.5 MG dilaudid administered. Pt complains of itching and 25 mg benadryl given with good results.
--- NOTE | 2021-08-13 14:14 | PCM48HPAN ---
Post Anesthesia Note - EVALUATION WITHIN 48HRS OF ANESTHETIC Vital Signs in Normal Range: Yes Patient Participated in Evaluation: Yes Respiratory Function Stable: Yes Airway Patent: Yes Cardiovascular Function Stable: Yes Hydration Status Stable: Yes Pain Control Satisfactory: Yes Nausea and Vomiting Control Satisfactory: Yes Mental Status Recovered: Yes Vital Signs: Last Vital Signs Temp 37.2 C 08/13/21 13:22 Pulse 114 H 08/13/21 13:52 Resp 15 08/13/21 13:52 BP 140/91 H 08/13/21 13:52 Pulse Ox 95 08/13/21 13:52 - COMMENTS/OBSERVATIONS Free Text/Narrative:: Pt denies pain or nausea.
[2021-08-13] MEDS: Acetaminophen/oxyCODONE 325-5 MG Tab PO PRN ×2 (16:59→23:23)
--- NOTE | 2021-08-13 18:56 | OR ---
SURGEON: Jose Durán MD DATE OF PROCEDURE: 08/13/2021 PREOPERATIVE DIAGNOSIS: Acute appendicitis. POSTOPERATIVE DIAGNOSIS: Acute appendicitis. PROCEDURE PERFORMED: Laparoscopic appendectomy with Surgicel placement. PRIMARY SURGEON: Jose Durán MD COMPLICATIONS: None. FINDINGS: The appendix is indurated, hardened, expanding, and engulfing by surrounding omentum consistent with appendicitis. Appendicolith is palpable. Gross perforation is not observed. Surgicel was placed for hemostasis. PROCEDURE IN DETAIL: The patient was taken to the operating room, placed in the supine position. Upon induction of general endotracheal anesthesia, the patient's abdomen was prepped and draped in a sterile fashion. Keene was inserted. Timeout has been called, patient identified, procedure identified and antibiotic identified. Using a skin scalpel, a lower midline incision was made, beveled to the right of the umbilicus and extended a couple fingers above the umbilicus. The abdomen was entered in a standard fashion. Upon gaining entrance to the peritoneal cavity, first examined the liver. It was grossly normal and no abnormality. The NG tube was in good position. The bowel was then packed and was cephalic. With packing, this was a little behind the cecum and the right colon. Attention first to mobilization of the right colon and abdominal wall, mobilized white line of Toldt and this was taken all the way to the hepatic flexure almost. It does not involve the hepatic flexure. Then mobilized the appendix, the mesoappendix and the TI was amputated at about 6 inches from the TI. The mesentery was transected and then the colon was also transected. The two of them were brought together creating a side to side anastomosis with functional end to end by using ANASTASIA-6 and TA60. Upon finishing, there is a generous donut and mesentery was repaired with the use of 3-0 Vicryl. Omentum pulled down. Good hemostasis upon finishing surgery and abdomen closed with double-stranded PDS. Skin was approximated by the use of skin bobbi. Specimen was passed off the field. At the conclusion of the surgery, before closing the abdominal wound, instrument count and sponge count were done and were correct. The patient was awakened, extubated and transferred to recovery in hemodynamically stable condition. The patient tolerated the procedure well. There were no intraoperative complications. Dr. Durán was present through the whole procedure. Intraoperative findings as dictated above. At the conclusion of the surgery after irrigation, a piece of Surgicel was placed for hemostasis and skin approximated by use of skin staple followed with appropriate drsg. As always, thank you for the kind referral. CARLOS SESAY /[id number]
[2021-08-14] MEDS: Acetaminophen/oxyCODONE 325-5 MG Tab PO PRN ×2 (05:32→10:00)
[2021-08-14] MEDS: Ciprofloxacin in D5W 400 MG in Premix Bag 1 BAG IV SCH ×2 (09:14)
[2021-08-14 09:48] VITALS: BP 121/67; PULSE 93
== END 2021-08-14 10:52 | disposition home or self-care (01) ==
LOC: MW.ED 01:39 → MW.MS 10:13 → UNDOADMOB 11:48 → MW.MS 11:48
PROVIDERS: ADMIT Surgery; ATTEND Surgery
DX: K35.80 Unspecified acute appendicitis (principal); Z01.812 Encounter for preprocedural laboratory examination; Z20.822 Contact with and (suspected) exposure to COVID-19
CPT/HCPCS: 36415; 44970; 74177; 76830; 80053; 81001; 81025; 83690; 85025; 87635; A9270; J0131; J0330; J0744; J1100; J1170; J1885; J2270; J2370; J2405; J2704; J3010; J3490; J7030; J7120; Q9967; 00840; U0002

== ENCOUNTER 2022-09-13 13:21 | Emergency (ER) | payer BC ==
[2022-09-13 14:31] LABS: CORONAVIRUS COVID-19 NAA NEGATIVE (NEGATIVE); INFLUENZA A NAA NEGATIVE (NEGATIVE); INFLUENZA B NAA NEGATIVE (NEGATIVE); RESPIRATORY SYNCYTIAL VIR NAA NEGATIVE (NEGATIVE)
[2022-09-13] MEDS ORDERED: Sodium Chloride 0.9% 1,000 ML IV ONE ×2 (14:31→16:44)
[2022-09-13] MEDS ORDERED: Ketorolac 30 MG/ML SDV IVPUSH ONE (14:31)
[2022-09-13] MEDS ORDERED: Ondansetron 4 MG/2 ML SDV IVPUSH ONE (14:39)
[2022-09-13 15:20] LABS: CARBON DIOXIDE,CO2 27.2 mmol/L (21.0-32.0); POTASSIUM,K 3.5 mmol/L (3.5-5.1)
[2022-09-13] MEDS ORDERED: Morphine 4 MG/ML Syringe IVPUSH ONE (15:42)
[2022-09-13] MEDS ORDERED: Iopamidol 755 MG/ML 500 ML Multipack Bottle IVPUSH STA (16:07)
[2022-09-13 18:59] VITALS: BP 112/79; PULSE 115
== END 2022-09-13 18:59 | disposition home or self-care (01) ==
LOC: MW.ED 13:21
DX: R07.9 Chest pain, unspecified (principal); I10 Essential (primary) hypertension; Z91.048 Other nonmedicinal substance allergy status; Z79.899 Other long term (current) drug therapy; Z90.49 Acquired absence of other specified parts of digestive tract; Z90.710 Acquired absence of both cervix and uterus; Z20.822 Contact with and (suspected) exposure to COVID-19
CPT/HCPCS: 0241U; 36415; 71045; 71275; 80053; 84443; 84484; 85025; 93005; 96361; 96374; 96375; 99284; J1885; J2270; J2405; J7030; Q9967

== ENCOUNTER 2022-12-30 02:14 | Emergency (ER) | payer BC ==
[2022-12-30] MEDS ORDERED: Ondansetron 4 MG/2 ML SDV IVPUSH ONE (02:28)
[2022-12-30] MEDS ORDERED: Famotidine 20 MG/2 ML SDV IVPUSH ONE (02:28)
[2022-12-30] MEDS ORDERED: Sodium Chloride 0.9% 1,000 ML IV ONE ×2 (02:28)
[2022-12-30 02:35] VITALS: BP 126/89
[2022-12-30 03:33] LABS: CARBON DIOXIDE,CO2 24.8 mmol/L (21.0-32.0); POTASSIUM,K 3.8 mmol/L (3.5-5.1)
[2022-12-30 04:28] VITALS: PULSE 86
== END 2022-12-30 04:26 | disposition home or self-care (01) ==
LOC: MW.ED 02:14
DX: R11.2 Nausea with vomiting, unspecified (principal); I10 Essential (primary) hypertension; J45.909 Unspecified asthma, uncomplicated; Z91.09 Other allergy status, other than to drugs and biological substances
CPT/HCPCS: 36415; 80053; 83690; 83735; 84703; 85025; 96361; 96374; 96375; 99284; J2405; J3490; J7030

== ENCOUNTER 2023-02-01 16:57 | Emergency (ER) | payer BC ==
[2023-02-01] MEDS ORDERED: Morphine 4 MG/ML Syringe IVPUSH ONE (19:02)
[2023-02-01] MEDS ORDERED: Ondansetron 4 MG/2 ML SDV IVPUSH ONE (19:02)
[2023-02-01] MEDS ORDERED: Sodium Chloride 0.9% 1,000 ML IV SCH (19:15)
[2023-02-01 19:23] LABS: BASOPHILS ABSOLUTE AUTO 0.1 K/uL (0.0-0.1); BASOPHILS PERCENT AUTO 0.4 % (0.0-1.5); EOSINOPHILS ABSOLUTE AUTO 0.2 K/uL (0.0-0.7); EOSINOPHILS PERCENT AUTO 0.8 % (0.0-7.0); HEMATOCRIT 36.2 % (36.0-46.0); HEMOGLOBIN 12.1 g/dL (12.0-16.0); LYMPHOCYTES ABSOLUTE AUTO 4.5 K/uL (0.6-2.4); LYMPHOCYTES PERCENT AUTO 24.1 % (16.0-40.0); MEAN CORPUSCULAR HEMOGLOBIN 31.8 pg (27.0-32.0); MEAN CORPUSCULAR HGB CONC 33.4 g/dL (31.0-37.0); MONOCYTES PERCENT AUTO 5.1 % (0.0-15.0); NEUTROPHILS ABSOLUTE AUTO 13.1 K/uL (1.4-5.7); NEUTROPHILS PERCENT AUTO 69.6 % (48.0-80.0); NRBC ABSOLUTE 0 K/uL; PLATELET COUNT,PLT 445 K/uL (150-400); RED BLOOD CELL COUNT 3.81 M/uL (4.30-5.90); WHITE BLOOD CELL COUNT,WBC 18.82 K/uL (4.0-11.0)
[2023-02-01 19:50] LABS: A/G RATIO 0.9 (0.9-1.6); ALBUMIN 3.4 g/dL (3.4-5.0); BILIRUBIN TOTAL 0.8 mg/dL (0.2-1.0); CALCIUM 8.6 mg/dL (8.5-10.1); CARBON DIOXIDE,CO2 29.5 mmol/L (21.0-32.0); CREATININE 0.8 mg/dL (0.6-1.0); EST CRCL DRUG DOSING (CG) 72.52 mL/min; POTASSIUM,K 3.7 mmol/L (3.5-5.1); PROTEIN TOTAL,TP 7.1 g/dL (6.4-8.2)
[2023-02-01] MEDS ORDERED: diphenhydrAMINE 50 MG/ML SDV IVPUSH ONE (20:07)
[2023-02-01 23:05] VITALS: BP 108/70; PULSE 65
== END 2023-02-01 21:10 | disposition home or self-care (01) ==
LOC: MW.ED 16:57
DX: L76.82 Other postprocedural complications of skin and subcutaneous tissue (principal); I10 Essential (primary) hypertension; J45.909 Unspecified asthma, uncomplicated; Z91.018 Allergy to other foods; Z91.09 Other allergy status, other than to drugs and biological substances
CPT/HCPCS: 36415; 80053; 83880; 85025; 96361; 96374; 96375; 99283; J1200; J2270; J2405; J7030; 99284

== ENCOUNTER 2024-05-06 21:09 | Observation (INO) | payer BC ==
[2024-05-06 21:27] LABS: BASOPHILS ABSOLUTE AUTO 0.09 K/uL (0.00-0.20); BASOPHILS PERCENT AUTO 0.7 % (0.0-1.0); EOSINOPHILS ABSOLUTE AUTO 0.47 K/uL (0.00-0.45); EOSINOPHILS PERCENT AUTO 3.6 % (0.0-6.0); HEMATOCRIT 43.7 % (37.0-47.0); HEMOGLOBIN 14.8 g/dL (12.0-16.0); IMMATURE GRAN ABSOLUTE AUTO 0.02 K/uL (0.00-0.05); IMMATURE GRAN PERCENT AUTO 0.2 % (0.0-0.4); LYMPHOCYTES ABSOLUTE AUTO 4.19 K/uL (1.00-4.80); LYMPHOCYTES PERCENT AUTO 32.4 % (24.0-44.0); MEAN CORPUSCULAR HEMOGLOBIN 30.6 pg (28.0-32.0); MEAN CORPUSCULAR HGB CONC 33.9 g/dL (32.0-36.0); MEAN CORPUSCULAR VOLUME 90.5 fL (83.0-99.0); MEAN PLATELET VOLUME 9.2 fL (9.4-12.3); MONOCYTES ABSOLUTE AUTO 0.85 K/uL (0.00-0.80); MONOCYTES PERCENT AUTO 6.6 % (0.0-8.0); NEUTROPHILS ABSOLUTE AUTO 7.31 K/uL (1.80-7.70); NEUTROPHILS PERCENT AUTO 56.5 % (41.0-71.0); PLATELET COUNT,PLT 422 K/uL (150-400); RED BLOOD CELL COUNT 4.83 M/uL (4.10-5.30); WHITE BLOOD CELL COUNT,WBC 12.93 K/uL (3.9-11.3)
[2024-05-06] MEDS: LORazepam 2 MG/ML SDV IVPUSH STA (21:32)
[2024-05-06] MEDS: Sodium Chloride 0.9% 1,000 ML IV ONE (21:34)
[2024-05-06] MEDS: Ondansetron 4 MG/2 ML SDV IVPUSH ONE (21:34)
[2024-05-06 21:56] LABS: A/G RATIO 1.2 (0.9-1.6); ALBUMIN 4.9 g/dL (3.4-5.0); BILIRUBIN TOTAL 1.4 mg/dL (0.2-1.0); CALCIUM 10.3 mg/dL (8.5-10.1); CARBON DIOXIDE,CO2 25.6 mmol/L (21.0-32.0); CREATININE 0.9 mg/dL (0.6-1.0); EST CRCL DRUG DOSING (CG) 63.26 mL/min; POTASSIUM,K 3.3 mmol/L (3.5-5.1); PROTEIN TOTAL,TP 9.1 g/dL (6.4-8.2)
[2024-05-06 22:03] LABS: MAGNESIUM 1.6 mg/dL (1.8-2.4); TSH ULTRASENSITIVE 5.23 uIU/mL (0.36-3.74)
[2024-05-06 22:28] LABS: T4 FREE 1.03 ng/dL (0.76-1.46)
[2024-05-06] MEDS: Tetracaine HCl/PF 0.5% 4 ML Bottle EYELF ONE (23:59)
[2024-05-07] MEDS: Sodium Chloride 0.9% 1,000 ML IV STA (00:04)
[2024-05-07 00:06] LABS: APPEARANCE,URINE CLEAR; BILIRUBIN,URINE NEGATIVE (NEGATIVE); COLOR,URINE YELLOW; GLUCOSE,URINE NEGATIVE (NEGATIVE); KETONES,URINE NEGATIVE (NEGATIVE); LEUKOCYTE ESTERASE,URINE NEGATIVE (NEGATIVE); NITRITE,URINE NEGATIVE (NEGATIVE); OCCULT BLOOD,URINE NEGATIVE (NEGATIVE); PROTEIN,URINE NEGATIVE (NEGATIVE); UROBILINOGEN,URINE 0.2 EU/dL (<2.0)
[2024-05-07] MEDS: Ketorolac 30 MG/ML SDV IVPUSH ONE (00:36)
[2024-05-07] MEDS: Metoprolol Tartrate 25 MG Tab PO ONE (01:23)
[2024-05-07] MEDS: Magnesium Sulfate/Water 2 GM in Premix Bag 1 BAG IV ONE (02:09)
[2024-05-07] MEDS: Potassium Chloride 20 MEQ Tab.ER PO ONE (02:09)
[2024-05-07] MEDS: Acetaminophen 325 MG Tab PO PRN ×2 (04:40→10:18)
[2024-05-07 06:15] LABS: BASOPHILS ABSOLUTE AUTO 0.08 K/uL (0.00-0.20); BASOPHILS PERCENT AUTO 0.7 % (0.0-1.0); EOSINOPHILS ABSOLUTE AUTO 0.48 K/uL (0.00-0.45); EOSINOPHILS PERCENT AUTO 4.2 % (0.0-6.0); HEMOGLOBIN 11.4 g/dL (12.0-16.0); IMMATURE GRAN ABSOLUTE AUTO 0.04 K/uL (0.00-0.05); IMMATURE GRAN PERCENT AUTO 0.4 % (0.0-0.4); LYMPHOCYTES ABSOLUTE AUTO 4.47 K/uL (1.00-4.80); LYMPHOCYTES PERCENT AUTO 39.4 % (24.0-44.0); MEAN CORPUSCULAR HEMOGLOBIN 31.1 pg (28.0-32.0); MEAN CORPUSCULAR HGB CONC 33.5 g/dL (32.0-36.0); MEAN CORPUSCULAR VOLUME 92.9 fL (83.0-99.0); MEAN PLATELET VOLUME 9.8 fL (9.4-12.3); MONOCYTES PERCENT AUTO 6.2 % (0.0-8.0); NEUTROPHILS ABSOLUTE AUTO 5.58 K/uL (1.80-7.70); NEUTROPHILS PERCENT AUTO 49.1 % (41.0-71.0); PLATELET COUNT,PLT 334 K/uL (150-400); RED BLOOD CELL COUNT 3.66 M/uL (4.10-5.30); WHITE BLOOD CELL COUNT,WBC 11.35 K/uL (3.9-11.3)
[2024-05-07 06:39] LABS: CALCIUM 8.4 mg/dL (8.5-10.1); CARBON DIOXIDE,CO2 26.1 mmol/L (21.0-32.0); CREATININE 0.9 mg/dL (0.6-1.0); EST CRCL DRUG DOSING (CG) 63.26 mL/min; MAGNESIUM 2.5 mg/dL (1.8-2.4); POTASSIUM,K 3.8 mmol/L (3.5-5.1)
[2024-05-07] MEDS ORDERED: Polyethylene Glycol 3350 Powder 17 GM Packet PO PRN (10:50)
[2024-05-07] MEDS ORDERED: Melatonin 3 MG Tab PO PRN (10:50)
[2024-05-07] MEDS: Metoprolol Tartrate 25 MG Tab PO SCH (12:33)
[2024-05-07] MEDS ORDERED: Metoprolol Tartrate 50 MG Tab PO SCH (13:00)
[2024-05-07 17:42] VITALS: BP 129/80; PULSE 86
== END 2024-05-07 19:00 | disposition home or self-care (01) ==
LOC: MW.ED 21:09 → MW.MS 05-07 01:19
PROVIDERS: ADMIT Internal Medicine; ATTEND Internal Medicine
DX: R00.0 Tachycardia, unspecified (principal); E87.8 Other disorders of electrolyte and fluid balance, not elsewhere classified; R51.9 Headache, unspecified; H57.11 Ocular pain, right eye; F41.9 Anxiety disorder, unspecified; R07.9 Chest pain, unspecified; J45.909 Unspecified asthma, uncomplicated; I10 Essential (primary) hypertension; Z90.710 Acquired absence of both cervix and uterus; Z79.899 Other long term (current) drug therapy; Z91.018 Allergy to other foods; Z91.09 Other allergy status, other than to drugs and biological substances
CPT/HCPCS: 36415; 71045; 80048; 80053; 81003; 83690; 83735; 84439; 84443; 84484; 85025; 85379; 93005; 96361; 96374; 96375; 99285; A9270; J1885; J2060; J2405; J3475; J7030; 93010; 96365; 96366; 99284; G0378; J3490

== ENCOUNTER 2024-07-16 20:23 | Emergency (ER) | payer BC ==
[2024-07-16 20:50] VITALS: PULSE 86
[2024-07-16] MEDS: Ketorolac 60 MG/2 ML SDV IM ONE (21:38)
[2024-07-16] MEDS: Acetaminophen/HYDROcodone 325-5 MG Tab PO ONE (22:54)
[2024-07-16 22:57] VITALS: BP 121/78
== END 2024-07-16 22:57 | disposition home or self-care (01) ==
LOC: MW.ED 20:23
DX: M25.562 Pain in left knee (principal); I10 Essential (primary) hypertension; J45.909 Unspecified asthma, uncomplicated; Z91.018 Allergy to other foods; Z91.048 Other nonmedicinal substance allergy status; Z79.899 Other long term (current) drug therapy; Z90.49 Acquired absence of other specified parts of digestive tract; Z90.710 Acquired absence of both cervix and uterus
CPT/HCPCS: 73562; 96372; 99283; A9270; J1885